=== PATIENT | female | born 1940 | race Caucasian/White ===

== ENCOUNTER → 2019-01-28 12:12 | Outpatient (CLI) | payer MEDICARE, BC, SELFPAY ==
--- NOTE | 2019-01-28 | DI.MG.S_ITS ---
BILATERAL DIGITAL DIAGNOSTIC MAMMOGRAM 3D/2D: 01/28/2019 CLINICAL: Right breast lump. Comparison is made [facility]. There are scattered fibroglandular elements in both breasts. There is a new 2.1 cm irregular equal density mass with an obscured margin in the right breast at 11 o'clock middle depth. This is seen in additional views. This correlates as palpated and with skin marker. There is axillary adenopathy associated with the mass. There also is a new 0.6 cm oval focal asymmetry in the right axillary tail. Additionally, there is a new 1.1 cm irregular equal density asymmetry in the right axillary tail. No other significant masses, calcifications, or other findings are seen in either breast. IMPRESSION: INCOMPLETE: NEEDS ADDITIONAL IMAGING EVALUATION The new 2.1 cm irregular equal density mass in the right breast at 11 o'clock middle depth is indeterminate. An ultrasound is recommended. The new 0.6 cm oval focal asymmetry in the right axillary tail is indeterminate. An ultrasound is recommended. The new 1.1 cm irregular equal density asymmetry in the right axillary tail is indeterminate. An ultrasound is recommended. Ultrasound evaluation is scheduled to immediately follow this study. This exam was interpreted at Station ID: [id number]. NOTE: For mammograms, a report in lay terms will be sent to the patient. Approximately 15% of breast malignancies will not be visualized mammographically. In the management of a palpable breast mass, a negative mammogram must not discourage biopsy of a clinically suspicious lesion. Electronically Signed By: Tate Musa M.D. aty/:01/28/2019 14:08:02 ACR BI-RADS Category 0: Incomplete [id number]
--- NOTE | 2019-01-28 | DI.US.S_ITS ---
ULTRASOUND OF RIGHT BREAST: 01/28/2019 CLINICAL: Palpable right breast lump. Comparison is made to exams dated: 01/28/2019 mammogram and 04/16/2006 mammogram - [facility]. Color flow and real-time ultrasound of the right breast were performed. Mehta scale images of the real-time examination were reviewed. There is 2.2 cm x 2 cm x 2.3 cm wider than tall irregular mass in the right breast at 11 o'clock middle depth 5 cm from the nipple. This irregular mass is hypoechoic with posterior acoustic shadowing. Color flow imaging demonstrates that there is an adjacent vascularity. This mass correlates with palpable area of concern. There was a second mass in very close vicinity to this index mass seen on today's comparison mammogram which appears to be a more focal component off the margin of this mass. There also is 0.6 cm x 0.7 cm x 0.6 cm irregular mass in the right breast at 11 o'clock posterior depth noted in close vicinity to the index mass which is likely a satellite lesion. Color flow imaging demonstrates that there is an adjacent vascularity. Additionally, there is an abnormal lymph node with eccentric cortical thickening in the right axilla. IMPRESSION: HIGHLY SUGGESTIVE OF MALIGNANCY The 2.2 cm x 2 cm x 2.3 cm wider than tall irregular mass in the right breast at 11 o'clock middle depth is highly suggestive of malignancy. An ultrasound guided biopsy is recommended. The lymph node with eccentric cortical thickening in the right axillary tail is suspicious of malignancy. An ultrasound guided biopsy is recommended. The 0.6 cm x 0.7 cm x 0.6 cm irregular mass in the right breast at 11 o'clock posterior depth is in close proximity to the index mass and is favored to represent a satellite lesion. This is suspicious of malignancy. A possible core biopsy is recommended pending results of biopsy of the index mass and axillary lymph node. This exam was interpreted at Station ID: [id number]. SUMMARY: Findings and recommendations were discussed with the patient during today's visit. Electronically Signed By: Tate Musa M.D. aty/:01/28/2019 16:02:22 letter sent: Biopsy Required Ultrasound BI-RADS: 5 Highly suggestive of malignancy
== END ==
PROVIDERS: Visit Provider Family Medicine
DX: R92.8 Other abnormal and inconclusive findings on diagnostic imaging of breast (principal); N63.11 Unspecified lump in the right breast, upper outer quadrant; R59.0 Localized enlarged lymph nodes
CPT/HCPCS: 76642; 77066; G0279

== ENCOUNTER → 2019-02-23 12:32 | Outpatient (CLI) | payer MEDICARE, BC, SELFPAY ==
--- NOTE | 2019-02-23 | DI.MG.S_ITS ---
UNILATERAL RIGHT DIGITAL DIAGNOSTIC MAMMOGRAM POST-NEEDLE BIOPSY: 02/23/2019 CLINICAL: Post clip placement. Right breast mass. Comparison is made to exams dated: 01/28/2019 mammogram and 04/16/2006 mammogram - [facility]. There are scattered fibroglandular elements in right breast. There is a marker clip in the appropriate position in the right axilla. This marker clip placement is at the biopsy site. There also is a marker clip in the appropriate position in the right breast at 10 o'clock This marker clip placement is at the biopsy site. IMPRESSION: POST PROCEDURE MAMMOGRAM FOR MARKER PLACEMENT There was a successful marker clip placement in the right axilla. There was a successful marker clip placement in the right breast at 10 o'clock This exam was interpreted at Station ID: [id number]. NOTE: For mammograms, a report in lay terms will be sent to the patient. Approximately 15% of breast malignancies will not be visualized mammographically. In the management of a palpable breast mass, a negative mammogram must not discourage biopsy of a clinically suspicious lesion. Electronically Signed By: Morales garcia/:02/23/2019 15:05:39 ACR BI-RADS Category Post-procedure mammogram for marker placement
--- NOTE | 2019-02-23 | DI.US.S_ITS ---
ULTRASOUND GUIDED BIOPSY RIGHT BREAST USING VACUUM DEVICE WITH MARKING DEVICE INSERTED: 02/23/2019 CLINICAL: Right breast mass. PATIENT CONSENT: Risks (minor bleeding, infection, vasovagal reaction and repeat procedure), benefits and alternatives were explained to the patient and written informed consent was obtained. Correlation is made to exams dated: 01/28/2019 ultrasound, 01/28/2019 mammogram, and 04/16/2006 mammogram - [facility]. An ultrasound guided biopsy using real-time ultrasound was performed for the irregular shaped mass located in the right breast at 10 o'clock middle depth. The skin was prepped in the usual manner. Local anesthetic was administered to the access site. A small incision was made in the breast. The abnormality was approached from the lateral aspect. A biopsy needle was placed adjacent to the abnormality under ultrasound guidance. Once the needle was documented to be in the correct location, six specimens were obtained using the Mammotome biopsy system. A clip was inserted into the biopsy cavity. The specimens were sent to the laboratory for pathological analysis. IMPRESSION: ULTRASOUND GUIDED BIOPSY MALIGNANT Ultrasound guided biopsy of the mass in the right breast at 10 o'clock middle depth was successful. Pathology indicates malignant invasive ductal carcinoma (ID). Pathology results are concordant with imaging findings. Of note, a smaller suspicious mass was noted less than 1.0 cm from this biopsied mass, slightly more posteriorly at the 11:00 o'clock position and is consistent with a satellite lesion. A surgical/oncologic consultation is recommended. This exam was interpreted at Station ID: [id number]. Morales garcia,aty/:03/03/2019 17:53:43
--- NOTE | 2019-02-23 | PATH_ITS ---
[facility] Accession Number: [id number] . 01 Material submitted: . PART A: breast - RIGHT BREAST MASS PART B: lymph node - RIGHT AXILLARY LYMPH NODES . 01 Clinical history: . MASS 10:00 6CM FN . 01 Diagnosis: A. Right Breast Mass, Image-Guided Core Biopsies: Invasive mammary adenocarcinoma, moderately differentiated. Histologic type: Ductal. Histologic grade: 2/3 (tubule formation score: 2/3, nuclear pleomorphism score: 2/3, mitotic score: 2/3). Combined total Winsome histologic score: 6/9, moderately differentiated. Largest size of invasive carcinoma (as measured on a single core): 8 mm. Ductal carcinoma in situ: Not definitely seen. Lymphovascular invasion: Not identified. Rare calcifications are present associated with the invasive carcinoma. . . B. 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 Largest focus of carcinoma: 4 mm. MRV/02/25/2019 . 01 Comment: Prognostic and predictive markers will be added on part A and results will follow in an addendum report. . Results have been reported to Dr. Alban Santana's RN, on 02/25/2019, at 11:12 am. . As part of ongoing software quality automation engineer, this case is also reviewed by Dr. Amrida Rueda, who agrees with the interpretation. . 01 Electronically signed: . Romario Becerra MD, Pathologist NPI- [id number] . 01 Gross description: . Received two formalin-filled containers, both labeled with the patient's name: . A. In a container labeled #1 BRST., the specimen is received with a plastic filter in container, sample loose in container and consists of multiple yellow-medrano portions of tissue which range in size from 0.3 cm to 1.0 cm in greatest dimension and a small amount of blood. The specimen is entirely submitted in cassette A. B. In a container labeled axilla #2, are three 0.1 cm in diameter, cylindrical-shaped portions of tissue that range in length from 0.4 cm to 1.0 cm. The specimen is entirely submitted in cassette B. . Collection date: 02/23/2019. Collection time per container: Part A - 1:45, Part B - 2:05. Total fixation time: 12 hours, up to 24. ([id number]) /FRR . 01 Pathologist provided ICD-10: C50.811 . 01 CPT . 718330, 378757, 538937, 897379, [id number], [id number] Performed at: [address] [id number] MD Bebeto Maxwell MD Phone: [phone]
--- NOTE | 2019-02-23 | DI.US.S_ITS ---
ULTRASOUND GUIDED BIOPSY RIGHT BREAST WITH MARKING DEVICE INSERTED: 02/23/2019 CLINICAL: Right axillary node biopsy. PATIENT CONSENT: Risks (minor bleeding, infection, vasovagal reaction and repeat procedure), benefits and alternatives were explained to the patient and written informed consent was obtained. Correlation is made to exams dated: 01/28/2019 ultrasound, 01/28/2019 mammogram, and 04/16/2006 mammogram - [facility]. An ultrasound guided biopsy using real-time ultrasound was performed for the lobulated lymph node located in the right axilla. The skin was prepped in the usual manner. Local anesthetic was administered to the access site. A small incision was made in the breast. A biopsy needle was placed adjacent to the abnormality under ultrasound guidance. Once the needle was documented to be in the correct location, four specimens were obtained using a BARD biopsy device. A clip was inserted into the biopsy cavity. The specimens were sent to the laboratory for pathological analysis. IMPRESSION: ULTRASOUND GUIDED BIOPSY MALIGNANT Ultrasound guided biopsy of the lymph node in the right axilla was successful. 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 Pathology results are concordant with imaging findings. A surgical/oncologic consultation is recommended. This exam was interpreted at Station ID: [id number]. Morales garcia,aty/:03/03/2019 17:50:25
== END ==
PROVIDERS: PCP Family Medicine; Visit Provider Family Medicine
DX: C50.411 Malignant neoplasm of upper-outer quadrant of right female breast (principal); C77.3 Secondary and unspecified malignant neoplasm of axilla and upper limb lymph nodes; Z17.0 Estrogen receptor positive status [ER+]
CPT/HCPCS: 19083; 38505; 76942; 77065; 85060; 88305; 88342

== ENCOUNTER → 2019-03-24 11:36 | Outpatient (CLI) | payer MEDICARE, BC, SELFPAY ==
[2019-03-24 12:18] LABS: Add Manual Diff / Slide Review NO; Basophils Absolute Auto 100 /uL (0-100); Basophils Percent Auto 1.2 % (0-2); Eosinophils Absolute Auto 100 /uL (0-450); Eosinophils Percent Auto 2.8 % (2-4); Hematocrit 45.3 % (36-46); Hemoglobin 14.7 g/dL (12.0-16.0); Lymphocytes Absolute Auto 1300 /uL (1100-4500); Lymphocytes Percent Auto 28.7 % (25-40); Mean Corpuscular HGB Conc 32.5 % (30-36); Mean Corpuscular Hemoglobin 30.9 PG (26-34); Mean Corpuscular Volume 94.9 fL (80-100); Monocytes Absolute Auto 400 /uL (0-900); Monocytes Percent Auto 8.5 % (3-14); Neutrophils Absolute Auto 2700 /uL (1500-7000); Neutrophils Percent Auto 58.8 % (50-75); Platelet Count 232 X10^3/uL (150-400); Red Blood Cell Count 4.77 X10^6/uL (4.0-5.2); Red Cell Distribution Width 14.3 % (11.6-14.8); White Blood Cell Count 4.6 X10^3/uL (4.5-11.0)
[2019-03-24 12:44] LABS: Alanine Aminotransferase 50 IU/L (9-52); Albumin 4.6 g/dL (3.5-5.0); Albumin Globulin Ratio 1.5 (1.0-2.8); Alkaline Phosphatase 96 U/L (38-126); Aspartate Aminotransferase 34 IU/L (14-36); BUN Creatinine Ratio 27.3 (6-22); Bilirubin Total 0.8 mg/dL (0.2-1.3); Blood Urea Nitrogen 30 mg/dL (7-17); Calcium 10.3 mg/dL (8.4-10.2); Carbon Dioxide 29 mmol/L (22-32); Chloride 102 mmol/L (98-107); Estimated Glomerular Filt Rate 47.9 mL/min (>60); Glucose 95 mg/dL (80-110); HEMOLYSIS < 15 (0-50); Lactate Dehydrogenase 463 U/L (313-618); Potassium 4.2 mmol/L (3.4-5.1); Sodium 141 mmol/L (137-145); Total Protein 7.6 g/dL (6.3-8.2)
== END ==
PROVIDERS: PCP Family Medicine; Visit Provider Surgery
DX: C50.911 Malignant neoplasm of unspecified site of right female breast (principal)
CPT/HCPCS: 36415; 80053; 83615; 85025

== ENCOUNTER → 2019-05-14 13:58 | Outpatient (CLI) | payer MEDICARE, BC, SELFPAY ==
--- NOTE | 2019-05-14 14:01 | DI.ECHO.S_ITS ---
[facility]---------+ [facility] +---------+ : : [address] [place] : : : : [id number] : : : : Phone: [phone]---------+ Echocardiogram Report + + :Name: LESLIE FORRESTER Study Date: 05/14/2019 Height: 60 in : :[facility] Exam Location: [facility] Weight: 150 lb : : Gender: Female BSA: 1.7 m2 : :: 1940 Age: 79 yrs BP: 170/100 mmHg: :Reason For Study: Pre Chemo (ICD Code V67.2) : : Performed By: Sirena Page : :Referring: LORENZA NICK : + + Interpretation Summary Mild concentric left ventricular hypertrophy with ejection fraction 60-65%. Grade I diastolic dysfunction. Moderately dilated left atrium. Mild mitral annular calcification. No valvular regurgitation. Procedure: A two-dimensional transthoracic echocardiogram with color flow and Doppler was performed. The study quality was technically adequate. There is no prior echocardiogram noted for this patient. The patient was in normal sinus rhythm during the exam. The patient had frequent PVCs during the exam. Left Ventricle: The left ventricle is normal in size. There is mild concentric left ventricular hypertrophy. The ejection fraction is estimated to be 60-65%. There are no focal wall motion abnormalities. Diastolic parameters suggest a relaxation abnormality of the left ventricle, consistent with probable normal filling pressures. Right Ventricle: The right ventricle is normal in size and function. Atria: The left atrium is moderately dilated. Right atrial size is normal. There is no Doppler evidence for an interatrial shunt. Mitral Valve: The mitral valve is normal in structure and function. There is mild mitral annular calcification. There is trace mitral regurgitation. Aortic Valve: The aortic valve is trileaflet. The aortic valve opens well. No aortic regurgitation is present. Tricuspid Valve: The tricuspid valve is normal in structure and function. There is a trace or physiologic amount of tricuspid regurgitation. Pulmonary artery pressures cannot be estimated because of the lack of a measurable TR jet velocity. Pulmonic Valve: The pulmonic valve is not well visualized. There is a trace or physiologic amount of pulmonic regurgitation. Great Vessels: The aortic root is normal size. The ascending aorta is normal in size. The pulmonary is not well visualized. The IVC is of normal diameter and collapses greater than 50% with a sniff. This suggests a low right atrial pressure of 3 mm Hg. Pericardium/ Pleura There is no pericardial effusion. There is no pleural effusion. MMode/2D Measurements & Calculations LVIDd: 4.6 cm Ao root diam: 2.9 cm LVIDs: 2.7 cm asc Aorta Diam: 2.9 cm FS: 41.1 % EPSS: 0.53 cm IVSd: 1.0 cm LVPWd: 1.2 cm LV armstrong. diameter/BSA (cm/m^2): 2.8 LV sys. diameter/BSA (cm/m^2): 1.6 LA A2 area: 21.2 cm2 RA long axis: 4.6 cm LA A4 area: 23.1 cm2 RA area: 13.4 cm2 LA length (vol): 5.7 cm RA vol: 33.4 ml LA vol: 72.9 ml RA : 20.2 ml/m2 LA vol index: 44.2 ml/m2 IVC diam: 1.6 cm RVD1 (basal): 3.5 cm RVD2 (mid): 3.0 cm TAPSE: 1.6 cm Doppler Measurements & Calculations Ao V2 max: 110.0 cm/sec LVOT Max John: 88.5 cm/sec Ao V2 mean: 74.2 cm/sec LV V1 max P.1 mmHg Ao max P.8 mmHg LV V1 VTI: 19.1 cm Ao mean P.5 mmHg sev ratio: 0.84 Ao V2 VTI: 22.6 cm MV E max john: 84.9 cm/sec PA V2 max: 67.1 cm/sec MV A max john: 94.7 cm/sec PA V2 mean: 49.9 cm/sec MV E/A: 0.90 PA mean P.1 mmHg Med Peak E' John: 3.7 cm/sec PA Accel Time: 0.12 sec E/E' med: 22.8 Lat Peak E' John: 7.0 cm/sec E/E' lat: 12.1 E/e' average: 17.5 MV P1/2t: 55.8 msec MV P1/2t max john: 84.9 cm/sec MVA(P1/2t): 3.9 cm2 Electronically signed by: Stephy Velez on Reading Physician:05/14/2019 05:23 PM
--- NOTE | 2019-05-14 14:01 | DI.CT.S_ITS ---
PROCEDURE: CT CHEST ABD PEL W CON INDICATIONS: breast cancer TECHNIQUE: After the administration of oral and intravenous contrast, 5 mm thick sections acquired from the lung apices to the symphysis. 5 mm coronal and sagittal reformats were performed, with additional 7 mm coronal MIP reformats through the lungs. For radiation dose reduction, the following was used: automated exposure control, adjustment of mA and/or kV according to patient size. COMPARISON: None. FINDINGS: Image quality: Excellent. CHEST: Lungs and pleura: No acute consolidation. Scattered scarring/atelectasis and calcified granulomas in left lung base. There is lingular pleural nodularity, some of which demonstrates calcification raising possibility of calcified pleural plaque although indeterminate. No pleural effusions or pneumothorax. Central and peripheral airways appear patent and normal in caliber. Mediastinum: Heart size is normal. No pericardial effusion. No mediastinal or hilar adenopathy by size criteria. Thoracic aorta and central pulmonary arteries are normal in size. Esophagus is normal in caliber. No hiatal hernia. Chest wall: Right breast mass. Surgical/biopsy clips are noted. No axillary or supraclavicular adenopathy by size criteria. Thyroid gland heterogeneous although this could be better assessed with ultrasound. ABDOMEN: Solid organs: Diffuse fatty infiltration. Possible focal fatty infiltration in the gallbladder fossa on image 53 series 2. Gallbladder grossly unremarkable. Biliary system is non dilated. Pancreas enhances normally. Spleen is normal in size and enhancement. No adrenal nodules. Kidneys demonstrate normal size and enhancement, without hydronephrosis. Numerous bilateral renal cysts although some of these are technically too small to characterize accurately. There is mild renal cortical atrophy/thinning. Peritoneum and bowel: Bowel loops demonstrate normal wall thickness and caliber. No free fluid or air. Nodes and vessels: No retroperitoneal or mesenteric adenopathy by size criteria. Aorta and inferior vena cava are normal in size. Miscellaneous: No ventral hernias. PELVIS: Genitourinary: Bladder grossly unremarkable. Large left adnexal cyst measuring 11.0 x 8.3 cm cross-sectional measurement on image 97 series 2. Miscellaneous: No inguinal hernias or adenopathy. Bones: No suspicious bony lesions. No vertebral body compression fractures. Diffuse osteopenia and left hip arthroplasty. IMPRESSION: Right breast mass, with associated surgical/biopsy clips. 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 Consider biochemical correlation with CA-125. Recommend gynecological consultation and potentially laparoscopic evaluation as clinically warranted. Lingular pleural nodularity, which could represent asbestos related pleural plaques although recommend close attention to this area to exclude early pulmonary metastatic disease. Diffusely heterogeneous thyroid. Recommend dedicated thyroid ultrasound. Ill-defined possible focal fatty infiltration in the region of the gallbladder fossa although recommend attention to this area to document stability given the absence of prior studies. Dictated by: Morales Cavazos M.D. on 05/14/2019 at 16:44 Approved by: Morales Cavazos M.D. on 05/14/2019 at 16:53
[2019-05-14 15:18] LABS: Blood Urea Nitrogen 21 mg/dL (7-17); Estimated Glomerular Filt Rate 53.5 mL/min (>60)
== END ==
PROVIDERS: Family Provider Family Medicine; PCP Family Medicine; Visit Provider Internal Medicine Hematology & Oncology
DX: Z01.818 Encounter for other preprocedural examination (principal); C50.411 Malignant neoplasm of upper-outer quadrant of right female breast; C77.3 Secondary and unspecified malignant neoplasm of axilla and upper limb lymph nodes; N28.1 Cyst of kidney, acquired; R91.8 Other nonspecific abnormal finding of lung field; N94.9 Unspecified condition associated with female genital organs and menstrual cycle; Z17.0 Estrogen receptor positive status [ER+]
CPT/HCPCS: 36415; 71260; 74177; 82565; 84520; 93306; Q9967

== ENCOUNTER 2019-06-08 07:23 | Observation (INO) | payer MEDICARE, BC, SELFPAY ==
[2019-06-01 10:15] VITALS: BMI 29.9
[2019-06-08] VITALS (17 sets, daily range): BP systolic 73–141; BP diastolic 24–78; PULSE 60–91; RESP 12–20; TEMP 36.1–37.4; O2SAT 92–99; BMI 28.4
--- NOTE | 2019-06-08 | DI.MG.S_ITS ---
SPECIMEN: 06/08/2019 CLINICAL: Right breast specimen. Correlation is made to exams dated: 06/08/2019 localization and 06/08/2019 [facility]. The specimen received after lumpectomy contains the mass, the prior biopsy localization clip, and the two localization wires. IMPRESSION: SPECIMEN Successful lumpectomy, with specimen containing the mass, localization wires, and the prior biopsy clip. This exam was interpreted at Station ID: [id number]. Doc Shine M.D. sdh/:06/09/2019 09:55:57
--- NOTE | 2019-06-08 | DI.MG.S_ITS ---
UNILATERAL RIGHT DIGITAL DIAGNOSTIC MAMMOGRAM: 06/08/2019 CLINICAL: Wire localization images. Comparison is made to exams dated: 02/23/2019 mammogram and 01/28/2019 mammogram - [facility]. There are scattered fibroglandular elements in right breast. The post localization mammogram shows the two localization wires bracketing the right upper outer quadrant mass of concern. IMPRESSION: KNOWN BIOPSY PROVEN MALIGNANCY Appropriate positioning of two localization wires both medial and lateral to the right UOQ mass of current clinical concern, biopsy positive. This exam was interpreted at Station ID: [id number]. NOTE: For mammograms, a report in lay terms will be sent to the patient. Approximately 15% of breast malignancies will not be visualized mammographically. In the management of a palpable breast mass, a negative mammogram must not discourage biopsy of a clinically suspicious lesion. Electronically Signed By: Doc Shine M.D. sdh/:06/09/2019 09:59:46 ACR BI-RADS Category 6: Known biopsy proven malignancy [id number]
--- NOTE | 2019-06-08 | DI.RAD.S_ITS ---
PROCEDURE: XR CHEST 1V INDICATIONS: PORT A CATH PLACEMENT TECHNIQUE: One view of the chest was acquired. COMPARISON: None. FINDINGS: Surgical changes and devices: Port-A-Cath from left subclavian approach extends in normal position, in the distal SVC.. Lungs and pleura: Lungs are clear. No pleural effusions or pneumothorax. Mediastinum: Mediastinal contours appear normal. Heart size is normal. Bones and chest wall: No suspicious bony lesions. Overlying soft tissues appear unremarkable. IMPRESSION: Normal Port-A-Cath positioning without pneumothorax. Dictated by: Doc Shine M.D. on 06/08/2019 at 13:49 Approved by: Doc Shine M.D. on 06/08/2019 at 13:49
--- NOTE | 2019-06-08 | PATH_ITS ---
[facility] Accession Number: [id number] . 01 Material submitted: . PART A: breast - RIGHT BREAST MASS PART B: breast - RIGHT BREAST MASS POSTERIOR MARGIN PART C: breast - RIGHT BREAST MASS ANTERIOR MARGIN PART D: breast - RIGHT BREAST MASS MEDIAL MARGIN PART E: breast - RIGHT BREAST MASS LATERAL MARGIN PART F: axillary tail of breast - RIGHT AXILLARY TAIL TISSUE . 01 Clinical history: . MALIGNANT NEOPLASM OF UNSPECIFIED SITE . 01 Diagnosis: A. Right Breast Mass, Excision: Invasive (ductal) carcinoma, grade 2 of 3 ([place] combined histologic grade, total score 6/9), with the following features: - Tumor size (invasive component): approximately 3.5 cm, by microscopic measurement, with a smaller satellite lesion (0.2 cm). - Nuclear pleomorphism: High. (3/3) - Mitotic rate: Low. (1/3) - Tubular differentiation: Intermediate. (2/3) - Ductal carcinoma in situ (DCIS): Not definitely identified. - Calcifications: Present (in association with invasive carcinoma and benign breast parenchyma). - Lymphatic invasion: Focally present. - Resection margins: - Invasive carcinoma is present at the posterior margin, very close (less than 0.05 cm) from the superior margin (block A18), less than 0.1 cm from the anterior margin, 0.1 cm from the inferior margin (block A8), 0.1 cm from the medial margin (as satellite lesion, block A38), and more than 1 cm from the lateral margin; see additional margins below. - Prognostic markers performed on prior biopsy ([facility], case #: [id number], 02/23/2019), per report: - Estrogen receptor status: Positive. - Progesterone receptor status: Positive. - HER-2 by IHC: Negative. - Regional lymph node status: 6 out of 8 axillary lymph nodes, positive for carcinoma (see part F below), with extranodal extension. - Additional findings: - Skin, skeletal muscle, and nipple/areola complex: Not present for evaluation. - Radial scar, fibrocystic change including usual ductal hyperplasia, columnar cell change/hyperplasia, adenosis, and apocrine metaplasia. - Pathologic stage: at least pT2 pN2a. . B. Right Breast Mass, Posterior Margin, Excision: Fibrofatty breast parenchyma. Negative for atypia, carcinoma in situ, and invasive malignancy, including examination of margins. . C. Right Breast Mass, Anterior Margin, Excision: A small focus (0.05 cm) of invasive (lobular) carcinoma is present. Margins: invasive carcinoma is 0.3 cm from inked margins. Carcinoma in situ: Not present; focal flat epithelial atypia is present. Lymphatic invasion: Focally suspicious. Background breast: Radial scar, florid usual ductal hyperplasia, columnar cell change/hyperplasia, apocrine metaplasia, and microcysts. . D. Right Breast Mass, Medial Margin, Excision: Invasive (lobular) carcinoma, grade 2 of 3 ([place] combined histologic grade, total score 6/9), with the following features: - Tumor size (invasive component): 0.8 cm, by microscopic measurement. - Nuclear pleomorphism: Intermediate. (2/3) - Mitotic rate: Intermediate. (1/3) - Tubular differentiation: None. (3/3) - Ductal carcinoma in situ (DCIS): Present. - Nuclear grade: Low-grade. - Necrosis: Absent. - Extent: Present in one slide (block D11), measuring 0.25 cm. - Lobular carcinoma in situ (LCIS) is also present. - Calcifications: Present (in association with DCIS and benign breast parenchyma). - Lymphatic invasion: Not identified. - Resection margins: - Invasive carcinoma is 0.12 cm from the inked margins. - DCIS is less than 0.1 cm from the inked margins (0.2 cm linear span). - Prognostic markers (performed on block D13): - Estrogen receptor: Positive (>90% tumor cells positive, staining intensity: Strong). - Progesterone receptor: (40-50% tumor cells positive, staining intensity: Moderate). - HER-2: Negative for protein overexpression (0-1+). - Background breast: Radial scar, intraductal papilloma, fibrocystic change including columnar cell change/hyperplasia, usual ductal hyperplasia, apocrine metaplasia, and microcysts. . E. Right Breast Mass, Lateral Margin, Excision: Fibrofatty breast parenchyma. Negative for atypia, carcinoma in situ, and invasive malignancy, including examination of margins. . F. Right Axillary Tail Tissue, Dissection: Metastatic carcinoma in 6 out of 8 lymph nodes. Size of largest metastatic focus: 1.2 cm. Extranodal extension: present. MNT/06/14/2019 . 01 Comment: The size of the largest focus of invasive carcinoma is based on both gross and microscopic assessment, and involvement of full-thickness of at least 6 slices, each of about 0.6 cm in thickness for a total size of approximately 3.5 cm; the growth pattern of the invasive carcinoma is irregular with 'fingerlike' projections; The invasive carcinoma forms a contiguous mass (spanning across slices 3-10), and has at least 1 smaller satellite lesion within the lumpectomy specimen (measuring 0.2 cm in slice 15, which is 0.1 cm from the inferior and medial margins). Perineural invasion is present. . Dr. Ivory reviewed block A18 and agrees with the interpretation. . 01 Electronically signed: . Armida Rueda MD, Pathologist NPI- [id number] . 01 Gross description: . (A) Received: In formalin, labeled right breast mass, short stitch superior, long stitch lateral. Specimen: Right partial mastectomy. Weight: 66 grams. Measurement: Up to 4.5 cm anterior to posterior, 8.8 cm medial to lateral, and up to 3.5 cm superior to inferior. Skin ellipse: Absent. Wire: Two localization wires are present. Wire #1 enters the central lateral aspect and exits the medial posteroinferior aspect. Wire #2 enters and exits superficially the central lateral aspect. Margins: Oriented by surgeon with short superior suture, long lateral suture, and inked as follows: posterior=purple; anterior=black; superior=blue; inferior=green; medial=yellow; lateral=orange. Sliced: Lateral to medial into 15 slices. Lesions: One definitive lesion is identified along with a cluster of lesions. Lesion Description: Firm white lobulated mass. Size: 2.8 x 2.5 x 2.3 cm. Slices involved: Slice 3-9. Biopsy site: No obvious biopsy site is identified. No biopsy clip is found. Distance to margins: 0.8 cm from the anterior margin, 2.0 cm from the posterior margin, 0.5 cm from the superior margin, 0.3 cm from the inferior margin, 1.5 cm from the lateral margin, and 2.3 cm from the medial margin. Cluster Description: A cluster of firm white lobulated apparently separate masses. Size: 2.5 x 2.0 x 1.2 cm. Slices involved: 8-10 Biopsy site: No obvious biopsy site is identified. No biopsy clip is found. Distance to margins and lesions: 0.2 cm from the larger separate lesion, 2.5 cm from the anterior, less than 0.1 cm from the posterior, 0.2 cm from the superior, 1.1 cm from the inferior, 4.3 cm from the lateral margin, and 2.1 cm from the medial margin. Other: The remaining cut surfaces consist of yellow lobulated unremarkable adipose tissue. No additional discrete masses or lesions are grossly identified. Fixation time: The specimen was placed in formalin in 06/08/2019 with no time given. The approximate total fixation time is calculated to be 58 hours 30 minutes. Sections: A1: Slice 1, sales representative graphic art lateral end of specimen, perpendicular. A2-A4: Slice 2, slice adjacent to lesion 1, entirely submitted. A5: Slice 3 with mass #1, sales representative graphic art. A6: Slice 4 with lesion, sales representative graphic art. A7: Slice 5 with lesion, sales representative graphic art. A8: Slice 6 with lesion, sales representative graphic art. A9-A14: Slice 7 with lesion, tissue lateral to cluster, entirely submitted. A15-A18: Slice 8 with lesion and cluster, entirely submitted. A19-A23: Slice 9 with lesion and cluster, entirely submitted. A24-A29: Slice 10, tissue medial to lesion, cluster is present, entirely submitted. A30-A34: Slice 11, tissue medial to cluster, no obvious cluster is identified, entirely submitted. A34: Slice 12, fibrous tissue, sales representative graphic art. A35: Slice 13, fibrous tissue, sales representative graphic art. A36: Slice 14, fibrous tissue, sales representative graphic art. A37-A38: Slice 15, medial end, perpendicularly sectioned, entirely submitted. (B) Received in formalin, labeled right breast mass posterior margin, is an unoriented piece of medrano-yellow rubbery adipose tissue (4.0 x 3.0 x 0.9 cm) with a homogeneous unremarkable cut surface. No nodules, masses or lesions are grossly identified. The resection margin is inked black. Serially sectioned and entirely submitted in cassettes B1-B6 with the ends perpendicularly sectioned in B1 and B6. (C) Received in formalin, labeled right breast mass anterior margin, is an unoriented piece of medrano-yellow rubbery adipose tissue (4.7 x 3.0 x 1.8 cm) with a focally fibrous cut surface. No nodules, masses or lesions are grossly identified. The resection margin is inked black. Serially sectioned and entirely submitted in cassette C1-C12 with the ends perpendicularly sectioned in C1 and C12. (D) Received in formalin, labeled right breast mass medial margin, is an unoriented piece of medrano-yellow rubbery adipose tissue (5.5 x 3.0 x 2.2 cm) with a focally fibrous cut surface. No nodules, masses or lesions are grossly identified. The resection margin is inked black. Serially sectioned and entirely submitted in cassettes D1-D14 with the ends perpendicularly sectioned in D1-D2 and D14. (E) Received in formalin, labeled right breast mass lateral margin, is an unoriented piece of medrano-yellow rubbery adipose tissue (3.9 x 2.2 x 1.2 cm) with a homogeneous unremarkable cut surface. No nodules, masses or lesions are grossly identified. The resection margin is inked black, serially sectioned and entirely submitted in cassettes E1-E6 with the ends perpendicularly sectioned in E1 and E6. (F) Received in formalin, labeled right axillary tissue, are multiple pieces of medrano-yellow rubbery adipose tissue (7.8 x 5.8 x 2.0 cm in aggregate) containing multiple possible lymph nodes (0.2 x 0.1 x 0.1 cm-1.5 x 1.3 x 0.7 cm). Section code: (F1) multiple intact lymph nodes; (F2) two bisected lymph nodes, one is inked black; (F3-F4) one serially sectioned lymph node; (F5-F7) one serially sectioned lymph node. ([id number]) /MRV . 01 Microscopic: . Within block C6, a small focus of invasive carcinoma is evaluated with an E-Cadherin immunostain, with appropriately staining external controls. The area of interest demonstrates attenuation of E. Cadherin immunostain, and as compared to the background staining, it is best interpreted as consistent with a microscopic focus of invasive lobular carcinoma. Within block C1, a focal area suspicious for a lymphovascular invasion is evaluated with estrogen receptor, D2-40, and deeper levels, with appropriately staining external controls. While the focus of interest appears positive for ER, it is exhausted on the tissue level for D2-40, and overall is suspicious for lymphovascular space invasion. . Within block D13, the additional focus of invasive carcinoma is evaluated with E-Cadherin immunostain and demonstrates loss of E. Cadherin, in support of invasive lobular carcinoma. Lobular carcinoma in situ also shows loss of E-Cadherin; Prognostic markers are performed on block D13, and the invasive lobular carcinoma demonstrates the following immunohistochemical pattern: Estrogen receptor (SP1): Positive (>90% tumor cells staining; staining intensity: Strong). Progesterone receptor (1E2): Positive (40-50% tumor cells staining; staining intensity: Moderate). Her2 (4B5): Negative overexpression (0-1+). . Internal controls for ER and OR are positive. Cold ischemic time is <5 minutes. The scoring criteria for breast biomarkers by immunohistochemistry is based on the ASCO/CAP guidelines (Jazmin AC et al J Clin Oncol 2018: 2018 Apr 10;36(20):3018-9084 and Mildred ME et al, Arch Pathol Lab Med 2009;134(6):907-22). Deparaffinized sections of formalin fixed tissue (along with appropriate positive controls) are incubated with the above antibody(s). Using the automated [place] stainer, tissue is incubated with the designated antibody which is then localized by a non-biotin, dual polymer detection system. The external controls are reviewed for appropriate reactivity and found to be adequate. Results on the target cell population are indicated above. These tests have not been validated on decalcified tissue. This test was developed and its performance characteristics determined by [employer]. It has not been cleared or approved by the U.S. Food and Drug Administration. The FDA has determined that such clearance or approval is not necessary. This test is used for clinical purposes. It should not be regarded as investigational or for research. . 01 Pathologist provided ICD-10: C50.911 . 01 CPT . 973404, 435352, 145691, R15572, Z55222, 146897, 907967, 902089, 221960, W10785, 918740, 287833 Performed at: [address] [facility] [address], [place], [place] [id number] MD Bebeto Maxwell MD Phone: [phone]
--- NOTE | 2019-06-08 07:25 | DI.US.S_ITS ---
MAMMOGRAPHY GUIDED NEEDLE LOCALIZATION RIGHT BREAST WITH POST DIGITAL MAMMOGRAPHIC IMAGING AND RADIOGRAPHIC SPECIMEN IMAGIN06/08/2019 CLINICAL: Pre-op wire localization with ultrasound guidance. Correlation is made to exams dated: 02/23/2019 ultrasound biopsy, 02/23/2019 ultrasound biopsy, 02/23/2019 mammogram, 01/28/2019 ultrasound, 01/28/2019 mammogram, and 04/16/2006 mammogram - [facility]. A needle localization using mammography guidance was performed for the concerning circumscribed lobulated solid mass located in the right breast at 11 o'clock middle depth. This was described on the previous mammography and ultrasound reports. The skin was prepped in the usual manner. Local anesthetic was administered to the access site. The localization was approached from the lateral aspect. Two localization wires were inserted into the targeted area through an introducer device under mammography guidance. The first was placed with its tip just proximal tothe posterior boarder of the mass. The second was placed through the mass itself, and with tip terminating approximately 2.5 cm beyond the medial border of the mass. A sterile dressing was applied to the access site. Post placement digital mammographic imaging demonstrates the tips demarcate the boundaries of the targeted area. IMPRESSION: NEEDLE LOCALIZATION Needle localization for the solid mass in the right breast at 11 o'clock middle depth with placement of two needles at the lateral and beyond the medial borders of the mass was successful. The imaged specimen includes the mass, a biopsy clip, and the distal portion of the localization wires. This exam was interpreted at Station ID: [id number]. Doc Shine M.D. [facility]/:06/09/2019 09:52:18
--- NOTE | 2019-06-08 08:38 | PM.PREOP ---
Pre-operative Note Interval Note History & Physical reviewed/Exam performed by Physician: Yes Changes to H&P: No
[2019-06-08] MEDS: ONDANSETRON 4 MG/2 ML INJ IV (09:43)
[2019-06-08] MEDS: LACTATED RINGERS 1,000 ML 100 ML IV (09:43)
--- NOTE | 2019-06-08 09:46 | SUR.PREOP ---
Pt dry heaving. Dr. Mcghee notified, zofrfarida ordered. Quetabathae provided. Pt vomited small amt of green fluid, medicated with zofan.
[2019-06-08] MEDS: CLINDAMYCIN 900 MG/50 ML PIGGYBACK 50 MG IV (10:52)
--- NOTE | 2019-06-08 11:03 | SUR.OPER ---
Supine on padded OR bed, head on pillow, arm padded and tucked at side, legs uncrossed, safety belt at thigh, tape over blanket over lower legs .
[2019-06-08] MEDS: BUPIVACAINE 0.25% (PF) VIAL 30 ML INJ (11:50)
[2019-06-08] MEDS: HEPARIN 5,000 UNIT, SODIUM CHLORIDE 0.9% 50 ML IV (11:50)
--- NOTE | 2019-06-08 13:10 | PM.OP.1 ---
Operative Date/Time/Diagnoses Date of procedure: 06/08/19 Time of procedure: 13:11 Pre-op diagnosis: Right breast cancer Post-op diagnosis: same Procedure & Clinicians Procedure: Right needle guided lumpectomy Left subclavian port a cath placement R axillary lymph node dissection Same procedure as scheduled: Yes Indications: A 79-year-old female with a 2 cm biopsy-proven invasive ductal carcinoma of the right breast ER/IA positive, HER2 negative with biopsy proven positive axillary node. She presents for a needle-guided lumpectomy Port-A-Cath placement and right axillary lymph node dissection. She has 2 lesions within the right breast the dominant lesion and a <1cm satellite lesion both of which underwent needle localization today. Surgeon: Travis Mcghee Click Yes if Unassisted: Yes Anesthesia Type: General Operative Notes Findings: Palpable axillary lymph nodes, breast cancer removed in entirety with radographic confirmation of wires and clips within the specimen Specimen(s): other (R breast mass. R breast margins (anterior, posterior, medial and lateral) R axillary tissue) Estimated Blood Loss (mL): 20 Procedure in detail: The patient was brought to the operating room and placed supine on the table. Bilateral lower extremity compression devices were applied. General anesthesia was induced she was intubated with an endotracheal tube. He was then prepped and draped in usual sterile fashion. Time-out was performed into the correct patient procedure necessary equipment within the operating room. Began with a left subclavian Port-A-Cath placement. The finer needle was advanced into the left subclavian vein. The guidewire was easily passed through the the needle and its position within the SVC was confirmed with fluoroscopy. Skin incision was made over the wire and then the dilator with its sheath was passed over the wire. Again its position was confirmed with fluoroscopy. We then advanced the catheter through the sheath and it attached the port which had been previously flushed with heparinized saline. The port flushed and withdrew easily. It is a subcutaneous pocket into which the port was placed. The port was secured to the underlying fascia using a 0 Prolene suture. The wound was irrigated and checked for hemostasis and then the subcutaneous tissues were closed with 3 0 Vicryl followed by for Monocryl for the skin and Dermabond. The patient was then re-prepped and draped for the right breast cancer aspect of the case. The localizing wires her in the right lateral aspect right inferior and lateral aspect of the breast. A curvilinear skin incision was made the steps to his tissues were divided. A wire within pulled into the wound. There is a large palpable breast mass. The mass was circumferentially dissected using electrocautery and it was removed in its entirety passed off the field labeled the specimen right breast mass. I took additional margins anterior posterior medial and lateral. Next proceeded with the axillary dissection through the same incision. The pectoralis minor and the latissimus were identified. The long thoracic nerve was identified along the chest wall and protected out of harms way. The grossly positive firm lymphatic tissue between the pectoralis minor the latissimus and the axillary vein was removed with ligatuure device. Again the plan was for a limited axillary dissection based on her age risk for lymphadema and plan for post axillary and breast radiation therapy and therefore only the grossly positive lymphatic tissue was removed. The wound was checked for hemostasis. The wound was irrigated with saline. Wound was then closed with 3 0 Vicryl the skin closed with Monocryl suture followed by the application of Dermabond. The sponge instrument count at the end of the operation was correct. Patient tolerated procedure well. Complications: none Post-operative Condition: stable Disposition: observation
--- NOTE | 2019-06-08 15:29 | PC.NURSE ---
Day Shift- Report rec'd from PACU at 1357 from [facility]. Pt arrived to unit room 205 at 1412. Oriented to call light, post op routines. Port-a cath card placed into pt's belongings bag. Right arm CMS+, radial pulse palpable. Right chest incision well approximated with surgical glue. Left chest port incision well approximated with surgical glue and covered with CDI tegaderm. Bed alarm on, Calf SCD's on BLE. Fax sent to OR at [address] Mcghee for PRN anti-emetic, pain medications. And to clarify if IVF needed post op. Evening RN aware.
[2019-06-08] MEDS: ACETAMINOPHEN 325 MG TABLET 650 MG PO ×2 (17:11→21:17)
[2019-06-08] MEDS: METFORMIN HCL 500 MG TABLET PO (21:17)
[2019-06-09] VITALS: BP 118/66; PULSE 76; RESP 16; TEMP 37.2; O2SAT 94
--- NOTE | 2019-06-09 03:57 | PC.NURSE ---
Pt rested in bed overnight without apparent distress. Pt did report intermittant achy pain to front of right shoulder. This pain lasted for ~30mins and resolved without intervention. CMS positive to right arm, radial pulse palpable. Left chest port placement site with wounds edges intact with surgical glue, no drainage, tegaderm in place. Pt expecting to discharge today back to [facility].
[2019-06-09 04:45] VITALS: BP 123/61; PULSE 79; RESP 18; TEMP 36.6; O2SAT 97
[2019-06-09] MEDS: ACETAMINOPHEN 325 MG TABLET 650 MG PO (08:21)
[2019-06-09] MEDS: AMLODIPINE 5 MG TABLET 10 MG PO (08:21)
[2019-06-09] MEDS: METFORMIN HCL 500 MG TABLET PO (08:21)
[2019-06-09] MEDS: hydroCHLOROthiazide 25 MG TABLET PO (08:21)
[2019-06-09] MEDS: LOSARTAN 50 MG TABLET 100 MG PO (08:21)
[2019-06-09] MEDS: DICLOFENAC 50 MG DR TABLET PO (08:22)
[2019-06-09 08:26] VITALS: BP 139/83; PULSE 74; RESP 18; TEMP 36.4; O2SAT 95
--- NOTE | 2019-06-09 08:36 | PM.DS.1 ---
History of Present Illness History of Present Illness Date Patient Seen: 06/09/19 Time Patient Seen: 08:36 Chief complaint: [id number] RIGHT *OPB* Narrative: 79-year-old female with locally advanced right breast cancer. Biopsy-proven invasive ductal carcinoma right breast 2cm in size ER/HI positive HER2 negative with palpable and biopsy-proven positive axillary lymph node, T2N1. CT chest abdomen pelvis which shows no evidence of metastatic disease. However, imaging does show a secondary satelite lesion in the right breast not biopsied <1 cm posterior to index mass that is suspicious. Oncology plans for adjuvant radiation and chemotherpay. Discharge Providers Provider Discharge Date: 06/09/19 Primary care physician: Palomo Phoenix MD Discharge provider: Travis Mcghee MD Summary Hospital Course Discharge Diagnosis: right breast cancer Hospital Course: The patient was taken to the operating room 06/08/2019 and underwent a needle-guided lumpectomy including both masses within the right breast as well as a right limited axillary dissection and a left subclavian Port-A-Cath placement. The patient tolerated the procedure well. the radiographs were reviewed which demonstrates appropriate port placement with no evidence of pneumothorax and imaging confirming that both wires were within the excised right breast mass. Postoperatively the patient did well. Pain is well controlled she is ambulatory and tolerating a diet. She is stable for discharge home at this time. Status at Discharge Cognitive/behavioral status at discharge: oriented Functional status at discharge: independent ambulation Overall status at discharge: patient is back to baseline Time Spent with Patient Time spent: Greater than 30 minutes Exam Vital Signs (past 8 hours): - 06/09/19 04:45 06/09/19 08:26 Temperature 97.8 F 97.6 F Pulse Rate 79 74 Respiratory Rate 18 18 Blood Pressure 123/61 139/83 Pulse Oximetry 97 95 Oxygen Delivery Method Room Air Oxygen Flow Rate 0 Narrative Exam Narrative: General adult female no acute distress alert and oriented Chest nonlabored respirations. Left subclavian Port-A-Cath incision clean dry intact . Breast right lumpectomy incision clean dry intact appropriately tender to palpation Discharge Plan Discharge Plan Patient Disposition: Home Discharge Med Rec/Prescriptions Prescriptions: New oxycodone 5 mg capsule 5 mg PO Q4-6H PRN (Reason: pain) Qty: 10 RF: 0 Continued metformin 500 mg tablet 500 mg PO BID Qty: 90 RF: 0 diclofenac potassium 50 mg tablet 50 mg PO DAILY Qty: 90 RF: 0 hydrochlorothiazide 25 mg tablet 25 mg PO DAILY Qty: 90 RF: 0 losartan 100 mg tablet 100 mg PO DAILY Qty: 90 RF: 0 amlodipine 10 mg tablet 10 mg PO DAILY RF: 0 rosuvastatin 5 mg tablet 5 mg PO DAILY RF: 0 Follow up/Referrals: Travis Mcghee MD [Physician] - Discharge Orders: Discharge (Order); Ordered 06/09/19 Ordered By: Travis Mcghee Provider Discharge Instructions Activity: may shower. No driving while taking narcotics. Skin/Wound/Dressing Care Report to your healthcare provider any signs of infection, such as:: chills, fever, increased pain, unusual drainage and unusual redness Visit Report/Discharge Packet Instructions: DI for Breast Biopsy, DI for Implanted Venous Access Port, [facility]: Wound Care Stand Alone Forms: Surgery Discharge Discharge Data Primary Care Provider: Palomo Phoenix Attending Provider: Travis Mcghee
--- NOTE | 2019-06-09 09:15 | PC.NURSE ---
Addendum entered by Amber Fonseca R.N. 06/09/19 10:59: Went over dc meds and instructions with patient, questions answered. RX for pain meds given. Pt has follow up appt scheduled. Patient taken via WC by staff and friend to cafeteria. Patient having lunch downstairs before leaving [place]. Original Note: Patient alert, oriented, denies pain and nausea. R axilla and left chest surgical site WNL. Tolerated breakfast without nausea. Pt ambulating indep in room, gait is steady and denies dizziness.
--- NOTE | 2019-06-10 15:07 | CM.DPNOTE ---
Late Entry/Initial DCP Note: Spoke w/Oncology SWer morning of pt's DC, 06.09.19, Kira Olmedoce-Joseph explained that she had spoken w/pt before this procedure and planned to f/u w/her once she got home re: questions about f/u in Oncology, hooks of medications and other questions about receiving care. Kira expects no barriers to safe return home today after medically cleared. Pt did DC home as expected, w/friend to assist back to [place]. DAIN Hay
== END 2019-06-09 11:01 | disposition home or self-care (01) ==
LOC: OR 07:24 → AC 07:25
PROVIDERS: Admitting Provider Surgery; Family Provider Family Medicine; PCP Family Medicine; Visit Provider Surgery
PROC: (CPT 19301; principal; 2019-06-08 10:45)
PROC: (CPT 19301; 2019-06-08 10:45)
PROC: (CPT 19301; 2019-06-08 10:45)
DX: C50.911 Malignant neoplasm of unspecified site of right female breast; Z45.2 Encounter for adjustment and management of vascular access device; Z17.0 Estrogen receptor positive status [ER+]; E11.9 Type 2 diabetes mellitus without complications; I10 Essential (primary) hypertension; Z79.84 Long term (current) use of oral hypoglycemic drugs
CPT/HCPCS: 19301; 36561; 19285; 71045; 76000; 76098; 77065; 82962; C1788; G0378; J1644; J2405; J2704; J3010

== ENCOUNTER → 2019-10-28 12:42 | Outpatient (CLI) | payer MEDICARE, BC, SELFPAY ==
[2019-06-08 14:26] VITALS: BMI 28.4
== END ==
PROVIDERS: PCP Family Medicine; Visit Provider Internal Medicine Hematology & Oncology
DX: M81.0 Age-related osteoporosis without current pathological fracture (principal); Z78.0 Asymptomatic menopausal state; C50.911 Malignant neoplasm of unspecified site of right female breast; E07.9 Disorder of thyroid, unspecified; M06.9 Rheumatoid arthritis, unspecified
CPT/HCPCS: 77080

== ENCOUNTER → 2019-11-01 10:32 | Outpatient (CLI) | payer MEDICARE, BC, SELFPAY ==
[2019-06-08 14:26] VITALS: BMI 28.4
--- NOTE | 2019-11-01 10:35 | DI.US.S_ITS ---
PROCEDURE: US PERIPH VENOUS UP EXTREM RT INDICATIONS: RT ARM SWELLING TECHNIQUE: Real-time imaging, as well as color and pulse Doppler interrogation, was performed of the right upper extremity deep veins from the inferior neck to the antecubital fossa. COMPARISON: None. FINDINGS: The internal jugular vein, visualized portions of the subclavian vein, axillary, and brachial veins are free of intraluminal thrombus. Where physically possible, the veins are normally compressible. Color and pulse Doppler demonstrate normal intraluminal flow, with expected phasicity and pulsatility. Additional scanning of the cephalic and basilic veins of the superficial system demonstrate normal compressibility, without thrombus. IMPRESSION: No DVT found. Dictated by: Doc Shine M.D. on 11/01/2019 at 11:49 Approved by: Doc Shine M.D. on 11/01/2019 at 11:51
== END ==
PROVIDERS: PCP Family Medicine; Visit Provider Internal Medicine Hematology & Oncology
DX: C50.411 Malignant neoplasm of upper-outer quadrant of right female breast (principal); C77.3 Secondary and unspecified malignant neoplasm of axilla and upper limb lymph nodes; M79.89 Other specified soft tissue disorders; M81.0 Age-related osteoporosis without current pathological fracture; Z17.0 Estrogen receptor positive status [ER+]
CPT/HCPCS: 93971; 99215

== ENCOUNTER → 2020-08-30 09:35 | Outpatient (CLI) | payer MEDICARE, OTHER, SELFPAY ==
[2019-06-08 14:26] VITALS: BMI 28.4
--- NOTE | 2020-08-30 09:38 | DI.US.S_ITS ---
LIMITED ULTRASOUND OF RIGHT BREAST AND AXILLA: 08/30/2020 CLINICAL: Additional evaluation requested from prior study. right breast. Comparison is made to exams dated: 08/30/2020 mammogram, 06/08/2019 specimen, 06/08/2019 mammogram, 06/08/2019 localization, 02/23/2019 ultrasound biopsy, and 02/23/2019 ultrasound biopsy - [facility]. Ultrasound of the right breast 9-12 o'clock, and axilla regions was performed. No shadowing mass, fluid collection, or other suspicious finding. IMPRESSION: NEGATIVE There is no sonographic evidence of malignancy. No finding to explain nipple retraction/inversion. This exam was interpreted at Station ID: [id number]. Electronically Signed By: Josiah Bryan M.D. jr/:08/30/2020 11:45:36 letter sent: Normal Exam Ultrasound BI-RADS: 1 Negative
--- NOTE | 2020-08-30 09:38 | DI.MG.S_ITS ---
BILATERAL DIGITAL DIAGNOSTIC MAMMOGRAM 3D/2D: 08/30/2020 CLINICAL: Right nipple retraction. Comparison is made to exams dated: 06/08/2019 mammogram, 02/23/2019 mammogram, and 01/28/2019 mammogram - [facility]. There are scattered fibroglandular elements in both breasts. There is a new post-surgical scar in the right breast at 11 o'clock middle depth. There is architectural distortion associated with the post-surgical scar. No other significant masses, calcifications, or other findings are seen in either breast. IMPRESSION: INCOMPLETE: NEEDS ADDITIONAL IMAGING EVALUATION There is new post-surgical scarring in the right breast related to recent lumpectomy. Nipple inversion/retraction is present, indeterminate. No suspicious abnormality otherwise. An ultrasound is recommended and has been scheduled to immediately follow. This exam was interpreted at Station ID: [id number]. NOTE: For mammograms, a report in lay terms will be sent to the patient. Approximately 15% of breast malignancies will not be visualized mammographically. In the management of a palpable breast mass, a negative mammogram must not discourage biopsy of a clinically suspicious lesion. Electronically Signed By: Josiah Bryan M.D. jr/:08/30/2020 11:32:25 letter sent: Additional Imaging Needed ACR BI-RADS Category 0: Incomplete [id number]
== END ==
PROVIDERS: PCP Family Medicine; Referring Provider Internal Medicine Hematology & Oncology; Visit Provider Internal Medicine Hematology & Oncology
DX: R92.8 Other abnormal and inconclusive findings on diagnostic imaging of breast (principal); N64.53 Retraction of nipple; C50.911 Malignant neoplasm of unspecified site of right female breast
CPT/HCPCS: 76642; 77066; G0279

== ENCOUNTER 2020-11-28 11:06 | Observation (INO) | payer MEDICARE, OTHER, SELFPAY ==
[2019-06-08 14:26] VITALS: BMI 28.4
[2020-11-28] VITALS (24 sets, daily range): BP systolic 119–161; BP diastolic 58–98; PULSE 84–101; RESP 16–28; TEMP 36.8–37.2; O2SAT 83–99; BMI 27.3
--- NOTE | 2020-11-28 11:09 | DI.RAD.S_ITS ---
PROCEDURE: XR PELVIS 1-2V INDICATIONS: pain sp glf TECHNIQUE: Single AP view(s) of the pelvis acquired. COMPARISON: None. FINDINGS: Bones: No definite acute fractures. Postoperative changes from left total hip arthroplasty with likely reactive/mechanical changes surrounding the acetabular cup component. No evidence for hardware loosening or failure. Moderate-severe osteoarthritic changes of the right hip. Visualized portions of the pelvic ring appear intact. Degenerative changes of the lower lumbar spine. No suspicious bony lesions. Soft tissues: Visualized bowel gas pattern is normal. No suspicious soft tissue calcifications. IMPRESSION: 1. Pelvis without acute fracture. 2. Moderate-severe right hip osteoarthrosis. 3. Status post left total hip arthroplasty without evidence for hardware loosening or failure. Dictated by: Tate Musa M.D. on 11/28/2020 at 12:00 Approved by: Tate Musa M.D. on 11/28/2020 at 12:02
--- NOTE | 2020-11-28 11:09 | DI.CT.S_ITS ---
PROCEDURE: CT HEAD/BRAIN WO CON INDICATIONS: pain sp glf TECHNIQUE: Noncontrast 4.5 mm thick angled axial sections acquired from the foramen magnum to the vertex, with coronal and sagittal reformats. For radiation dose reduction, the following was used: automated exposure control, adjustment of mA and/or kV according to patient size. COMPARISON: None. FINDINGS: Image quality: Excellent. CSF spaces: Basal cisterns are patent. No extra-axial fluid collections. The ventricles are symmetric in size and shape. Brain: No intracranial bleeds or masses. There is moderate cerebral volume loss for age, with resultant ventricular and sulcal prominence. There are moderate periventricular and deep white matter chronic small vessel ischemic changes. There is intracranial internal carotid artery atherosclerosis. Skull and face: There is right periorbital soft tissue swelling. Suggestion of possible nondisplaced posterolateral right orbital wall fracture with associated layering fluid in the right maxillary sinus. This is best seen on axial image 6, series 4. Remainder of the calvarium and visualized facial bones appear intact, without suspicious lesions. Sinuses: Mucosal thickening and layering fluid within the right maxillary sinus and posterior sphenoid sinuses. Remainder of the visualized paranasal sinuses and mastoids are clear. IMPRESSION: 1. CT head without acute intracranial abnormalities. 2. Possible nondisplaced posterolateral right orbital wall fracture with right periorbital soft tissue swelling. Recommend correlation with physical examination for area of patient's pain. 3. Right maxillary and sphenoid sinus disease. 4. Age related senescent changes and sequela of chronic small vessel ischemic disease. Dictated by: Tate Musa M.D. on 11/28/2020 at 12:02 Approved by: Tate Musa M.D. on 11/28/2020 at 12:11
--- NOTE | 2020-11-28 11:09 | DI.CT.S_ITS ---
PROCEDURE: CT CERVICAL SPINE WO CON INDICATIONS: pain sp glf TECHNIQUE: Noncontrast 3 mm thick sections acquired from the skull base to the T4 level. Sagittal and coronal reformats were then constructed. For radiation dose reduction, the following was used: automated exposure control, adjustment of mA and/or kV according to patient size. COMPARISON: None. FINDINGS: Image quality: Excellent. Bones: No acute fractures or dislocations. No acute compression fractures of the vertebral bodies. Craniocervical junction is intact. C1-C2 relationship is preserved. Visualized superior ribs are intact. Severe degenerative changes of the C1-C2 articulation. Moderate-severe multilevel cervical spondylosis throughout the imaged cervical spine with severe disc space loss at C5-6 and C6-7. Degenerative endplate changes and prominent endplate osteophytes are seen throughout the cervical spine but most pronounced from C3-4 through C6-7. Moderate multilevel facet arthropathy. Straightening of cervical lordosis. Degenerative changes of the bilateral temporomandibular joints. The possible nondisplaced fracture involving the posterolateral right orbital wall is not appreciated on this study. It may have represented a prominent nutrient foramen. Soft tissues: Prevertebral soft tissues are normal in thickness. No paravertebral hematomas. No apical pneumothoraces. Layering fluid and mucosal thickening of the right maxillary sinus. Layering fluid seen in the sphenoid sinuses. Mastoid air cells appear clear. IMPRESSION: 1. Cervical spine without acute fracture or dislocation. 2. Moderate-severe multilevel cervical spondylosis and associated facet arthropathy. 3. The possible nondisplaced posterolateral right orbital wall fracture described on comparison CT is not appreciated on this exam and may have represented a nutrient foramen . 4. Right maxillary and scattered sphenoid sinus disease. 5. Mild straightening of normal cervical lordosis likely related to positioning and/or concurrent muscle spasms. Dictated by: Tate Musa M.D. on 11/28/2020 at 12:13 Approved by: Tate Musa M.D. on 11/28/2020 at 12:21
--- NOTE | 2020-11-28 11:11 | DI.CT.S_ITS ---
PROCEDURE: CT THORACIC SPINE WO CON INDICATIONS: pain sp hitting back on tub TECHNIQUE: Noncontrast 3 mm thick sections acquired through the region of interest in the thoracic spine. Sagittal and coronal reformats were then constructed. For radiation dose reduction, the following was used: automated exposure control. COMPARISON: [facility], CT, CT CHEST ABD PEL W CON, 05/14/2019, 15:29. FINDINGS: Image quality: Excellent. Bones: There is normal overall bony alignment. No acute vertebral body compression fractures. No suspicious sclerotic or lytic bony lesions. Central spinal canal is of normal overall caliber. Mild multilevel spondylitic changes. Soft tissues: No paravertebral masses or hematomas. Visualized posteromedial lungs appear clear. A few calcified pulmonary granulomas. Minimal dependent atelectasis. No hilar or mediastinal adenopathy. Stable appearance of bilateral renal cysts. Very small hiatal hernia. IMPRESSION: 1. Thoracic spine without acute fracture or malalignment. 2. Mild multilevel thoracic spondylosis. 3. Chronic findings as above. Dictated by: Tate Musa M.D. on 11/28/2020 at 12:22 Approved by: Tate Musa M.D. on 11/28/2020 at 12:33
--- NOTE | 2020-11-28 11:11 | DI.RAD.S_ITS ---
PROCEDURE: XR KNEE RT 3V INDICATIONS: pain sp glf right knee TECHNIQUE: 3 views of the knee were acquired. COMPARISON: [facility], CR, XR PELVIS 1-2V, 11/28/2020, 11:18. FINDINGS: Bones: Diffuse osteopenia. Severe tricompartmental degenerative changes of the right knee with moderate joint space loss. Marginal osteophyte formation. There is cortical irregularity and gap like lucency seen only on the sunrise view of the medial patella. There is moderate overlying soft tissue swelling and a large joint effusion. Alignment is anatomic. Soft tissues: There is a large joint effusion with likely capsular calcifications. No suspicious soft tissue calcifications. IMPRESSION: 1. Cortical irregularity in cap like lucency involving the medial wall of the patella seen only on the sunrise view which in combination with history of fall, large suprapatellar joint effusion, and soft tissue swelling is suspicious for possible patellar fracture. Recommend correlation with examination for area of tenderness. 2. Severe tricompartmental osteoarthritic changes of the right knee. Dictated by: Tate Musa M.D. on 11/28/2020 at 11:55 Approved by: Tate Musa M.D. on 11/28/2020 at 11:59
[2020-11-28] MEDS: SODIUM CHLORIDE 0.9% 1,000 ML 1000 ML IV (11:21)
--- NOTE | 2020-11-28 11:22 | ED.FALL ---
HPI - Fall <Laura Leon AGING BOX HAND-BC - Last Filed: 11/28/20 16:30> General Chief Complaint: Fall Stated Complaint: Fall Time Seen by Provider: 11/28/20 11:08 Source: patient and EMS Mode of arrival: EMS History of Present Illness HPI Narrative: The patient is an 80-year-old female nonsmoker with history of breast cancer and osteoporosis who presents with a chief complaint of a ground level fall last night. She lives out in [place] and has been having significant right knee pain for the past few days. She was attempting to ambulate last night in the bathroom when she tripped and fell. She is adamant that this is a mechanical fall. However she was unable to get up a due to her level of pain so she spent all night on the ground. She was found by neighbor this morning. Her primary complaints include mid back pain, right knee pain, bilateral hip pain and neck pain. She denies any loss of consciousness. She states she has not had anything to eat or drink since yesterday morning. She states she was not walking around due to her knee pain, which is incapacitated her. She presents by [facility], fixed wing to ambulance transfer with no C-collar, on a inflatable spinal immobilizer. She was given 50 mcg of fentanyl en route. Patient activated as a modified trauma upon arrival as she is over 65 with a ground level fall and suspected injury. Related Data Home Medications Medication Instructions Recorded Confirmed metformin 1,000 mg PO DAILY 10/07/19 09/04/20 Previous Rx's Medication Instructions Recorded diclofenac potassium 50 mg tablet 50 mg PO DAILY #90 tab 03/24/19 hydrochlorothiazide 25 mg tablet 25 mg PO DAILY #90 tab 03/24/19 losartan 100 mg tablet 100 mg PO DAILY #90 tab 03/24/19 letrozole 2.5 mg PO DAILY #30 tab 04/06/20 lidocaine 1 patch TOPICAL DAILY PRN #15 ea 11/28/20 Allergies Allergy/AdvReac Type Severity Reaction Status Date / Time diphenhydramine Allergy Intermediate Numbness Verified 11/28/20 11:13 [From Motrin PM] ibuprofen [From Motrin PM] Allergy Intermediate Facial Verified 11/28/20 11:13 Numbness cephalexin Allergy Unknown unknown Verified 11/28/20 11:13 codeine Allergy Unknown didn't Verified 11/28/20 11:13 feel good indomethacin [From Indocin] Allergy Unknown unknown Verified 11/28/20 11:13 naproxen Allergy Unknown agrivated Verified 11/28/20 11:13 arthritis simvastatin Allergy Unknown unknown Verified 11/28/20 11:13 latex AdvReac Intermediate Rash Verified 11/28/20 11:13 Review of Systems <RYNE Childs - Last Filed: 11/28/20 16:30> Review of Systems Narrative: GENERAL: See HPI HEENT: Denies sinus pain, ear pain, sore throat, difficulty swallowing, dizziness. RESPIRATORY: Denies dyspnea, cough, wheezing, hemoptysis, sputum. CARDIOVASCULAR: Denies chest pain, palpitations, orthopnea, edema, GASTROINTESTINAL: Denies nausea, vomiting, abdominal pain, diarrhea, constipation, melena. : Denies dysuria, frequency, incontinence, hematuria, urinary retention. MUSCULOSKELETAL: See HPI SKIN: Denies rash, skin lesions, or other NEUROLOGIC: Denies weakness, headache, numbness, change in speech, confusion, seizures, incoordination. PSYCHIATRIC: No concerning psychosocial issues. 12 point review of systems is negative except for those stated above Patient History <RYNE Childs - Last Filed: 11/28/20 16:30> Medical History (Updated 11/28/20 @ 19:29 by Jihan Young DO) Arthritis Diabetes HLD (hyperlipidemia) Hypertension Rheumatic fever Surgical History H/O hernia repair H/O left knee surgery History of biopsy (02/23/19) History of left hip replacement Family History Mother Heart disease Social History household members: none Smoking Status: Never smoker alcohol intake: never substance use type: does not use Smoking Status: Never smoker Substance Use Type: does not use Exam <RYNE Childs - Last Filed: 11/28/20 16:30> Narrative Exam Narrative: GENERAL: This is a well-nourished, well-developed patient, weighing on stretcher HEAD: Atraumatic. Normocephalic. No temporal or scalp tenderness. No pain to palpation of facial bones. No pain to palpation of orbits. EYES: Pupils equal round and reactive. Extraocular motions intact. No scleral icterus. No injection or drainage. ENT: Nose without bleeding, purulent drainage or septal hematoma. Throat without erythema, tonsillar hypertrophy or exudate. Uvula midline. Airway patent. NECK: Trachea midline. No JVD or lymphadenopathy. Supple, nontender, no meningeal signs. CARDIOVASCULAR: Regular rate and rhythm RESPIRATORY: Clear to auscultation. Breath sounds equal bilaterally. No wheezes, rales, or rhonchi. No cough. No increased respiratory effort. No accessory muscle use. Speaking full sentences. GASTROINTESTINAL: Abdomen soft, non-tender, nondistended. No hepato-splenomegaly, or palpable masses. No guarding. EXTREMITIES: Significant pain to palpation noted range of motion, significant swelling noted right knee, no overlying erythema. Positive pedal pulses right foot. Decreased range of motion all ibrahim right knee. Diffuse pain to palpation bilateral hips. No pain to palpation bilateral femurs, using upper extremities equally. BACK: Pain to palpation C-spine, pain to palpation T-spine, no pain to palpation L-spine. Nontender without deformity or crepitance. No flank tenderness. Patient log rolled with nursing staff in C-spine precautions maintained initiated upon arrival to the emergency department. NEURO: AOx3. SKIN: No rash or erythema on visible skin. No overlying erythema or abrasion noted right knee. No Gacria signs no periorbital ecchymosis. Initial Vital Signs Initial Vital Signs: Vital Signs Pulse Rate 99 H 11/28/20 11:09 Pulse Oximetry 98 11/28/20 11:09 <Jihan Young DO - Last Filed: 11/28/20 19:30> Initial Vital Signs Initial Vital Signs: Vital Signs Pulse Rate 99 H 11/28/20 11:09 Pulse Oximetry 98 11/28/20 11:09 Procedures <RYNE Childs - Last Filed: 11/28/20 16:30> Orthopedic Splinting/Casting Injury #1: Side: right Lower Extremity Immobilizer: knee immobilizer Other Orthopedic Equipment: walker Post splinting neuro exam: intact Post splinting vascular exam: intact Placed by: Nursing Scores <RYNE Childs - Last Filed: 11/28/20 16:30> GCS [place] coma scale eye opening: Spontaneous Judith coma scale verbal response: Orientated [place] coma scale motor response: Obey commands Judith coma scale total score: 15 Nexus Score for C-Spine Focal Neurologic deficit present: No Midline spinal tenderness present: Yes Altered level of conciousness present: No Intoxication present: No Distracting Injury Present: Yes Nexus Criteria for C-spine: 2 Course <Laura LeonNATALIIAP-BC - Last Filed: 11/28/20 16:30> Orders Ordered: ED Orders 11/28/20 11:09 CT cervical spine wo con Stat CT head/brain wo con Stat XR pelvis 1-2V Stat 11/28/20 11:11 CT thoracic spine wo con Stat XR knee RT 3V Stat 11/28/20 11:47 Complete Blood Count AUTO DIFF Stat Comprehensive Metabolic Panel Stat Creatine Kinase Stat Lactate (Lactic Acid) Stat Lipase Stat Partial Thromboplastin Time Stat Prothrombin Time INR Stat Type and Screen Stat 11/28/20 15:09 Consult to BUSINESS PROPOSAL REP - Slurry Worker Stat 11/28/20 17:39 CT LE RT wo con Stat 11/28/20 18:38 Education, smoking cessation ONGOING Acetaminophen (Acetaminophen 325 Mg Tablet) 650 mg PO Q6HR PRN PRN Reason: Fever/Mild Pain (1-3) Hydrocodone Bitart/Acetaminophen (Hydrocodone/Acet 5/325 Tablet) 1 tab PO Q4HR PRN PRN Reason: Pain, Moderate (4-6) Diclofenac Sodium (Diclofenac [address] Tablet) 50 mg PO DAILY [facility] Enoxaparin Sodium (Enoxaparin 40 Mg/0.4 Ml Syringe) 40 mg SUBCUT DAILY [facility] Heparin Sodium (Porcine) (Heparin 500 Unit/5 Ml Port Flush) 500 unit IV PRN PRN PRN Reason: Flush Last Admin: 11/28/20 15:10 Dose: 500 unit Documented by: SUZANNE Hydrochlorothiazide (Hydrochlorothiazide 25 Mg Tablet) 25 mg PO DAILY [facility] Sodium Chloride (Normal Saline 0.9%) 1,000 mls @ 1,000 mls/hr IV BOLUS PRN PRN Reason: Fluid replacement Last Infusion: 11/28/20 15:06 Dose: 0 mls/hr Documented by: Admin: 11/28/20 11:21 Dose: 1,000 mls/hr Documented by: SUZANNE Lidocaine (Remove Lidocaine Patch) 2 each TOP BEDTIME [facility] Stop: 11/28/20 22:00 Lidocaine (Lidocaine Patch 1 Each Adh..Patch) 1 each TOP DAILY [facility] Last Admin: 11/28/20 16:11 Dose: 1 each Documented by: SUZANNE Lidocaine (Remove Lidocaine Patch) 1 each TOP BEDTIME [facility] Losartan Potassium (Losartan 50 Mg Tablet) 100 mg PO DAILY [facility] Metformin HCl (Metformin Hcl 500 Mg Tablet) 1,000 mg PO DAILY [facility] Naloxone HCl (Naloxone 0.4 Mg/Ml Vial) 0.2 mg IV Q2MIN PRN PRN Reason: Opiate Reversal Oxycodone/Acetaminophen (Oxycodone/Acetaminophen 5/325 Tablet) 2 tab PO Q4HR PRN PRN Reason: Pain, Severe (7-10) Discontinued Medications Hydrocodone Bitart/Acetaminophen (Hydrocodone/Acet 5/325 Tablet) 1 tab PO NOW ONE Stop: 11/28/20 12:56 Last Admin: 11/28/20 13:36 Dose: 1 tab Documented by: SUZANNE Hydrocodone Bitart/Acetaminophen (Hydrocodone/Acet 5/325 Tablet) 1 tab PO NOW ONE Stop: 11/28/20 15:51 Last Admin: 11/28/20 16:05 Dose: 1 tab Documented by: SUZANNE Lidocaine (Lidocaine Patch 1 Each Adh..Patch) 1 each TOP NOW ONE Stop: 11/28/20 12:56 Last Admin: 11/28/20 13:36 Dose: 1 each Documented by: SUZANNE Lidocaine (Lidocaine Patch 1 Each Adh..Patch) 1 each TOP DAILY [facility] Lidocaine HCl (Lidocaine 1% (Pf)) 2 ml INJ NOW ONE Stop: 11/28/20 14:28 Last Admin: 11/28/20 15:07 Dose: 0.2 ml Documented by: SUZANNE Methocarbamol (Methocarbamol 500 Mg Tablet) 500 mg PO NOW ONE Stop: 11/28/20 15:10 Last Admin: 11/28/20 15:22 Dose: 500 mg Documented by: AYALA Vital Signs Vital signs: Vital Signs - 8 hr 11/28/20 11:39 11/28/20 12:00 11/28/20 12:30 Pulse Rate 94 H 95 H 89 Respiratory Rate 23 28 H Blood Pressure 161/73 H 147/74 H 150/65 H Pulse Oximetry 98 99 99 11/28/20 13:00 11/28/20 13:30 11/28/20 14:00 Pulse Rate 90 96 H Respiratory Rate 24 28 H Blood Pressure 149/65 H 147/64 H 129/77 Pulse Oximetry 99 99 11/28/20 14:30 11/28/20 14:31 11/28/20 15:00 Pulse Rate 93 H 93 H 92 H Respiratory Rate 24 23 Blood Pressure 136/68 Pulse Oximetry 96 96 99 11/28/20 15:53 11/28/20 15:54 11/28/20 16:00 Pulse Rate 94 H 101 H 100 H Respiratory Rate Blood Pressure 134/73 137/72 Pulse Oximetry 83 L 98 99 11/28/20 16:15 11/28/20 16:30 11/28/20 17:00 Pulse Rate 95 H 98 H 99 H Respiratory Rate Blood Pressure 134/72 133/70 142/69 H Pulse Oximetry 99 98 98 11/28/20 17:30 11/28/20 18:30 11/28/20 19:00 Pulse Rate 95 H 96 H 84 Respiratory Rate Blood Pressure 132/98 H Pulse Oximetry 96 95 94 <Jhian Young, DO - Last Filed: 11/28/20 19:30> Orders Ordered: ED Orders 11/28/20 11:09 CT cervical spine wo con Stat CT head/brain wo con Stat XR pelvis 1-2V Stat 11/28/20 11:11 CT thoracic spine wo con Stat XR knee RT 3V Stat 11/28/20 11:47 Complete Blood Count AUTO DIFF Stat Comprehensive Metabolic Panel Stat Creatine Kinase Stat Lactate (Lactic Acid) Stat Lipase Stat Partial Thromboplastin Time Stat Prothrombin Time INR Stat Type and Screen Stat 11/28/20 15:09 Consult to BUSINESS PROPOSAL REP - Slurry Worker Stat 11/28/20 17:39 CT LE RT wo con Stat 11/28/20 18:38 Education, smoking cessation ONGOING Acetaminophen (Acetaminophen 325 Mg Tablet) 650 mg PO Q6HR PRN PRN Reason: Fever/Mild Pain (1-3) Hydrocodone Bitart/Acetaminophen (Hydrocodone/Acet 5/325 Tablet) 1 tab PO Q4HR PRN PRN Reason: Pain, Moderate (4-6) Diclofenac Sodium (Diclofenac [address] Tablet) 50 mg PO DAILY [facility] Enoxaparin Sodium (Enoxaparin 40 Mg/0.4 Ml Syringe) 40 mg SUBCUT DAILY [facility] Heparin Sodium (Porcine) (Heparin 500 Unit/5 Ml Port Flush) 500 unit IV PRN PRN PRN Reason: Flush Last Admin: 11/28/20 15:10 Dose: 500 unit Documented by: SUZANNE Hydrochlorothiazide (Hydrochlorothiazide 25 Mg Tablet) 25 mg PO DAILY [facility] Sodium Chloride (Normal Saline 0.9%) 1,000 mls @ 1,000 mls/hr IV BOLUS PRN PRN Reason: Fluid replacement Last Infusion: 11/28/20 15:06 Dose: 0 mls/hr Documented by: Admin: 11/28/20 11:21 Dose: 1,000 mls/hr Documented by: SUZANNE Lidocaine (Remove Lidocaine Patch) 2 each TOP BEDTIME [facility] Stop: 11/28/20 22:00 Lidocaine (Lidocaine Patch 1 Each Adh..Patch) 1 each TOP DAILY [facility] Last Admin: 11/28/20 16:11 Dose: 1 each Documented by: SUZANNE Lidocaine (Remove Lidocaine Patch) 1 each TOP BEDTIME [facility] Losartan Potassium (Losartan 50 Mg Tablet) 100 mg PO DAILY [facility] Metformin HCl (Metformin Hcl 500 Mg Tablet) 1,000 mg PO DAILY [facility] Naloxone HCl (Naloxone 0.4 Mg/Ml Vial) 0.2 mg IV Q2MIN PRN PRN Reason: Opiate Reversal Oxycodone/Acetaminophen (Oxycodone/Acetaminophen 5/325 Tablet) 2 tab PO Q4HR PRN PRN Reason: Pain, Severe (7-10) Discontinued Medications Hydrocodone Bitart/Acetaminophen (Hydrocodone/Acet 5/325 Tablet) 1 tab PO NOW ONE Stop: 11/28/20 12:56 Last Admin: 11/28/20 13:36 Dose: 1 tab Documented by: SUZANNE Hydrocodone Bitart/Acetaminophen (Hydrocodone/Acet 5/325 Tablet) 1 tab PO NOW ONE Stop: 11/28/20 15:51 Last Admin: 11/28/20 16:05 Dose: 1 tab Documented by: SUZANNE Lidocaine (Lidocaine Patch 1 Each Adh..Patch) 1 each TOP NOW ONE Stop: 11/28/20 12:56 Last Admin: 11/28/20 13:36 Dose: 1 each Documented by: SUZANNE Lidocaine (Lidocaine Patch 1 Each Adh..Patch) 1 each TOP DAILY [facility] Lidocaine HCl (Lidocaine 1% (Pf)) 2 ml INJ NOW ONE Stop: 11/28/20 14:28 Last Admin: 11/28/20 15:07 Dose: 0.2 ml Documented by: SUZANNE Methocarbamol (Methocarbamol 500 Mg Tablet) 500 mg PO NOW ONE Stop: 11/28/20 15:10 Last Admin: 11/28/20 15:22 Dose: 500 mg Documented by: AYALA Vital Signs Vital signs: Vital Signs - 8 hr 11/28/20 11:39 11/28/20 12:00 11/28/20 12:30 Pulse Rate 94 H 95 H 89 Respiratory Rate 23 28 H Blood Pressure 161/73 H 147/74 H 150/65 H Pulse Oximetry 98 99 99 11/28/20 13:00 11/28/20 13:30 11/28/20 14:00 Pulse Rate 90 96 H Respiratory Rate 24 28 H Blood Pressure 149/65 H 147/64 H 129/77 Pulse Oximetry 99 99 11/28/20 14:30 11/28/20 14:31 11/28/20 15:00 Pulse Rate 93 H 93 H 92 H Respiratory Rate 24 23 Blood Pressure 136/68 Pulse Oximetry 96 96 99 11/28/20 15:53 11/28/20 15:54 11/28/20 16:00 Pulse Rate 94 H 101 H 100 H Respiratory Rate Blood Pressure 134/73 137/72 Pulse Oximetry 83 L 98 99 11/28/20 16:15 11/28/20 16:30 11/28/20 17:00 Pulse Rate 95 H 98 H 99 H Respiratory Rate Blood Pressure 134/72 133/70 142/69 H Pulse Oximetry 99 98 98 11/28/20 17:30 11/28/20 18:30 11/28/20 19:00 Pulse Rate 95 H 96 H 84 Respiratory Rate Blood Pressure 132/98 H Pulse Oximetry 96 95 94 MDM - Fall <MELISA Childs-BC - Last Filed: 11/28/20 16:30> Lab Data Attestation: I reviewed the patient's lab results. Result diagrams: 11/28/20 11:47 11/28/20 11:47 Labs: Lab Results 11/28/20 11/28/20 11/28/20 Range/Units 11:47 11:47 11:47 WBC 8.7 (4.5-11.0) X10^3/uL RBC 3.99 L (4.0-5.2) X10^6/uL Hgb 12.2 (12.0-16.0) g/dL Hct 36.5 (36-46) % MCV 91.3 (80-100) fL MCH 30.5 (26-34) PG MCHC 33.3 (30-36) % RDW 14.6 (11.6-14.8) % Plt Count 302 (150-400) X10^3/uL Neut % (Auto) 81.3 H (50-75) % Lymph % (Auto) 8.2 L (25-40) % Dooly % (Auto) 10.1 (3-14) % Eos % (Auto) 0.0 L (2-4) % Baso % (Auto) 0.4 (0-2) % Neut # (Auto) 7100 H (9689-0798) /uL Lymph # (Auto) 700 L (7185-2362) /uL Dooly # (Auto) 900 (0-900) /uL Eos # (Auto) 0 (0-450) /uL Baso # (Auto) 0 (0-100) /uL PT (10.1-12.7) SECONDS INR (0.9-1.3) APTT (26.4-36.2) SECONDS Sodium 139 (137-145) mmol/L Potassium 3.8 (3.4-5.1) mmol/L Chloride 105 (98-107) mmol/L Carbon Dioxide 26 (22-32) mmol/L BUN 22 H (7-17) mg/dL Creatinine 0.77 (0.52-1.04) mg/dL Estimated GFR > 60.0 (>60) mL/min BUN/Creatinine Ratio 28.6 H (6-22) Glucose 157 H (80-110) mg/dL Lactate 0.7 (0.7-2.1) mmol/L Calcium 10.1 (8.4-10.2) mg/dL Total Bilirubin 0.9 (0.2-1.3) mg/dL AST 32 (14-36) IU/L ALT 26 (<35) IU/L Alkaline Phosphatase 155 H (38-126) U/L Total Creatine Kinase 286 H (30-135) U/L Total Protein 7.8 (6.3-8.2) g/dL Albumin 4.1 (3.5-5.0) g/dL Globulin 3.7 (1.7-4.1) g/dL Albumin/Globulin Ratio 1.1 (1.0-2.8) Lipase (23-300) U/L Blood Type Antibody Screen 11/28/20 11/28/20 11/28/20 Range/Units 11:47 11:47 11:47 WBC (4.5-11.0) X10^3/uL RBC (4.0-5.2) X10^6/uL Hgb (12.0-16.0) g/dL Hct (36-46) % MCV (80-100) fL MCH (26-34) PG MCHC (30-36) % RDW (11.6-14.8) % Plt Count (150-400) X10^3/uL Neut % (Auto) (50-75) % Lymph % (Auto) (25-40) % Dooly % (Auto) (3-14) % Eos % (Auto) (2-4) % Baso % (Auto) (0-2) % Neut # (Auto) (6168-2642) /uL Lymph # (Auto) (3170-0655) /uL Dooly # (Auto) (0-900) /uL Eos # (Auto) (0-450) /uL Baso # (Auto) (0-100) /uL PT 14.6 H (10.1-12.7) SECONDS INR 1.3 (0.9-1.3) APTT 30 (26.4-36.2) SECONDS Sodium (137-145) mmol/L Potassium (3.4-5.1) mmol/L Chloride (98-107) mmol/L Carbon Dioxide (22-32) mmol/L BUN (7-17) mg/dL Creatinine (0.52-1.04) mg/dL Estimated GFR (>60) mL/min BUN/Creatinine Ratio (6-22) Glucose (80-110) mg/dL Lactate (0.7-2.1) mmol/L Calcium (8.4-10.2) mg/dL Total Bilirubin (0.2-1.3) mg/dL AST (14-36) IU/L ALT (<35) IU/L Alkaline Phosphatase (38-126) U/L Total Creatine Kinase (30-135) U/L Total Protein (6.3-8.2) g/dL Albumin (3.5-5.0) g/dL Globulin (1.7-4.1) g/dL Albumin/Globulin Ratio (1.0-2.8) Lipase 44 (23-300) U/L Blood Type O Positive Antibody Screen Negative Imaging Data Extremity x-ray #1: Radiologist's Impression: [address] [place] [address] [id number] ReportSigned Patient: Chavez Price#: [id number]: 1940Acct:[id number]/Sex: 80 / FDate of Service: 11/28/20Loc: EDAccession Number: [id number] Procedure: XR knee RT 3V Ordering Provider: Laura Leon-GAYLE PROCEDURE: XR KNEE RT 3V INDICATIONS: pain sp glf right knee TECHNIQUE: 3 views of the knee were acquired. COMPARISON: [facility], , XR PELVIS 1-2V, 11/28/2020, 11:18. FINDINGS: Bones: Diffuse osteopenia. Severe tricompartmental degenerative changes of the right knee with moderate joint space loss. Marginal osteophyte formation. There is cortical irregularity and gap like lucency seen only on the sunrise view of the medial patella. There is moderate overlying soft tissue swelling and a large joint effusion. Alignment is anatomic. Soft tissues: There is a large joint effusion with likely capsular calcifications. No suspicious soft tissue calcifications. IMPRESSION: 1. Cortical irregularity in cap like lucency involving the medial wall of the patella seen only on the sunrise view which in combination with history of fall, large suprapatellar joint effusion, and soft tissue swelling is suspicious for possible patellar fracture. Recommend correlation with examination for area of tenderness. 2. Severe tricompartmental osteoarthritic changes of the right knee. Dictated by: Tate Musa M.D. on 11/28/2020 at 11:55 Approved by: Tate Musa M.D. on 11/28/2020 at 11:59 Extremity x-ray #2: Radiologist's Impression: [address] [place] [address] [id number] ReportSigned Patient: Chavez Price#: [id number]: 1940Acct:[id number]/Sex: 80 / FDate of Service: 11/28/20Lo: EDAccession Number: [id number] Procedure: XR pelvis 1-2V Ordering Provider: Laura Leon PROCEDURE: XR PELVIS 1-2V INDICATIONS: pain sp glf TECHNIQUE: Single AP view(s) of the pelvis acquired. COMPARISON: None. FINDINGS: Bones: No definite acute fractures. Postoperative changes from left total hip arthroplasty with likely reactive/mechanical changes surrounding the acetabular cup component. No evidence for hardware loosening or failure. Moderate-severe osteoarthritic changes of the right hip. Visualized portions of the pelvic ring appear intact. Degenerative changes of the lower lumbar spine. No suspicious bony lesions. Soft tissues: Visualized bowel gas pattern is normal. No suspicious soft tissue calcifications. IMPRESSION: 1. Pelvis without acute fracture. 2. Moderate-severe right hip osteoarthrosis. 3. Status post left total hip arthroplasty without evidence for hardware loosening or failure. Dictated by: Tate Musa M.D. on 11/28/2020 at 12:00 Approved by: Tate Musa M.D. on 11/28/2020 at 12:02 CT scan - head: Radiologist's Impression: [address] [place] [address] Scan ReportSigned Patient: Chavez Price#: [id number]: 1940Acct:[id number]/Sex: 80 / FDate of Service: 11/28/20Loc: EDAccession Number: [id number] Procedure: CT head/brain wo con Ordering Provider: Laura Leon PROCEDURE: CT HEAD/BRAIN WO CON INDICATIONS: pain sp glf TECHNIQUE: Noncontrast 4.5 mm thick angled axial sections acquired from the foramen magnum to the vertex, with coronal and sagittal reformats. For radiation dose reduction, the following was used: automated exposure control, adjustment of mA and/or kV according to patient size. COMPARISON: None. FINDINGS: Image quality: Excellent. CSF spaces: Basal cisterns are patent. No extra-axial fluid collections. The ventricles are symmetric in size and shape. Brain: No intracranial bleeds or masses. There is moderate cerebral volume loss for age, with resultant ventricular and sulcal prominence. There are moderate periventricular and deep white matter chronic small vessel ischemic changes. There is intracranial internal carotid artery atherosclerosis. Skull and face: There is right periorbital soft tissue swelling. Suggestion of possible nondisplaced posterolateral right orbital wall fracture with associated layering fluid in the right maxillary sinus. This is best seen on axial image 6, series 4. Remainder of the calvarium and visualized facial bones appear intact, without suspicious lesions. Sinuses: Mucosal thickening and layering fluid within the right maxillary sinus and posterior sphenoid sinuses. Remainder of the visualized paranasal sinuses and mastoids are clear. IMPRESSION: 1. CT head without acute intracranial abnormalities. 2. Possible nondisplaced posterolateral right orbital wall fracture with right periorbital soft tissue swelling. Recommend correlation with physical examination for area of patient's pain. 3. Right maxillary and sphenoid sinus disease. 4. Age related senescent changes and sequela of chronic small vessel ischemic disease. Dictated by: Tate Musa M.D. on 11/28/2020 at 12:02 Approved by: Tate Musa M.D. on 11/28/2020 at 12:11 CT - cervical spine: Radiologist's Impression: [address] [place] [id number] Scan ReportSigned Patient: Chavez Price#: [id number]: 1940Acct:[id number]/Sex: 80 / FDate of Service: 11/28/20Loc: EDAccession Number: [id number] Procedure: CT cervical spine wo con Ordering Provider: Laura Leon PROCEDURE: CT CERVICAL SPINE WO CON INDICATIONS: pain sp glf TECHNIQUE: Noncontrast 3 mm thick sections acquired from the skull base to the T4 level. Sagittal and coronal reformats were then constructed. For radiation dose reduction, the following was used: automated exposure control, adjustment of mA and/or kV according to patient size. COMPARISON: None. FINDINGS: Image quality: Excellent. Bones: No acute fractures or dislocations. No acute compression fractures of the vertebral bodies. Craniocervical junction is intact. C1-C2 relationship is preserved. Visualized superior ribs are intact. Severe degenerative changes of the C1-C2 articulation. Moderate-severe multilevel cervical spondylosis throughout the imaged cervical spine with severe disc space loss at C5-6 and C6-7. Degenerative endplate changes and prominent endplate osteophytes are seen throughout the cervical spine but most pronounced from C3-4 through C6-7. Moderate multilevel facet arthropathy. Straightening of cervical lordosis. Degenerative changes of the bilateral temporomandibular joints. The possible nondisplaced fracture involving the posterolateral right orbital wall is not appreciated on this study. It may have represented a prominent nutrient foramen. Soft tissues: Prevertebral soft tissues are normal in thickness. No paravertebral hematomas. No apical pneumothoraces. Layering fluid and mucosal thickening of the right maxillary sinus. Layering fluid seen in the sphenoid sinuses. Mastoid air cells appear clear. IMPRESSION: 1. Cervical spine without acute fracture or dislocation. 2. Moderate-severe multilevel cervical spondylosis and associated facet arthropathy. 3. The possible nondisplaced posterolateral right orbital wall fracture described on comparison CT is not appreciated on this exam and may have represented a nutrient foramen . 4. Right maxillary and scattered sphenoid sinus disease. 5. Mild straightening of normal cervical lordosis likely related to positioning and/or concurrent muscle spasms. Dictated by: Tate Musa M.D. on 11/28/2020 at 12:13 Approved by: Tate Musa M.D. on 11/28/2020 at 12:[address]: Radiologist's Impression: [address] [place] [id number] Scan ReportSigned Patient: Chavez Price#: [id number]: 1940Acct:[id number]/Sex: 80 / FDate of Service: 11/28/20Loc: EDAccession Number: [id number] Procedure: CT thoracic spine wo con Ordering Provider: Laura Leon PROCEDURE: CT THORACIC SPINE WO CON INDICATIONS: pain sp hitting back on tub TECHNIQUE: Noncontrast 3 mm thick sections acquired through the region of interest in the thoracic spine. Sagittal and coronal reformats were then constructed. For radiation dose reduction, the following was used: automated exposure control. COMPARISON: [facility], CT, CT CHEST ABD PEL W CON, 05/14/2019, 15:29. FINDINGS: Image quality: Excellent. Bones: There is normal overall bony alignment. No acute vertebral body compression fractures. No suspicious sclerotic or lytic bony lesions. Central spinal canal is of normal overall caliber. Mild multilevel spondylitic changes. Soft tissues: No paravertebral masses or hematomas. Visualized posteromedial lungs appear clear. A few calcified pulmonary granulomas. Minimal dependent atelectasis. No hilar or mediastinal adenopathy. Stable appearance of bilateral renal cysts. Very small hiatal hernia. IMPRESSION: 1. Thoracic spine without acute fracture or malalignment. 2. Mild multilevel thoracic spondylosis. 3. Chronic findings as above. Dictated by: Tate Musa M.D. on 11/28/2020 at 12:22 Approved by: Tate Musa M.D. on 11/28/2020 at 12:33 [facility] Narrative Medical decision making narrative: The patient is an 80-year-old female who presents after a ground level fall last night. She stayed on her bathroom floor overnight. Fortunately rectal signs are stable, no elevation of her creatinine, her total CK is not grossly elevated. She does complain of acute on chronic right knee pain, is noted to have a patellar fracture on x-ray. She is neurovascularly intact. She has diffuse hip pain, but has negative pelvic x-rays. she does have pain to C and T-spine, so CTs were obtained with no acute findings. Head CT has no acute findings as well. There is a suggestion of a possible orbital wall fracture on her head CT that is not present on her CT C-spine and she has no tenderness to her face and head. Thus I do believe that this finding on her head CT is related to a nutrient density as found on her CT C-spine. The patient feels much improved after the above-stated therapies. She is placed in a knee immobilizer. She is able to ambulate with a walker after, though does have increased pain. She is re-dosed with pain medication. Given difficulties getting back to [facility], DAIN Gillespie is to see the patient. However overall she is very fortunate from her incident, normal renal function, no elevated CPK, normal T-spine CT, normal CT C-spine and normal head CT. I discussed at length the importance of follow-up with primary care provider, she may benefit from home health, she may benefit from physical therapy, discussed rest ice compression elevation. Patient signed out to Dr. Young at 4:15 p.m. pending [employer] consult. <Jihan Hector, DO - Last Filed: 11/28/20 19:30> Lab Data Attestation: I reviewed the patient's lab results. Labs: Lab Results 11/28/20 11/28/20 11/28/20 Range/Units 11:47 11:47 11:47 WBC 8.7 (4.5-11.0) X10^3/uL RBC 3.99 L (4.0-5.2) X10^6/uL Hgb 12.2 (12.0-16.0) g/dL Hct 36.5 (36-46) % MCV 91.3 (80-100) fL MCH 30.5 (26-34) PG MCHC 33.3 (30-36) % RDW 14.6 (11.6-14.8) % Plt Count 302 (150-400) X10^3/uL Neut % (Auto) 81.3 H (50-75) % Lymph % (Auto) 8.2 L (25-40) % [place] % (Auto) 10.1 (3-14) % Eos % (Auto) 0.0 L (2-4) % Baso % (Auto) 0.4 (0-2) % Neut # (Auto) 7100 H (0163-1303) /uL Lymph # (Auto) 700 L (9027-5894) /uL [place] # (Auto) 900 (0-900) /uL Eos # (Auto) 0 (0-450) /uL Baso # (Auto) 0 (0-100) /uL PT (10.1-12.7) SECONDS INR (0.9-1.3) APTT (26.4-36.2) SECONDS Sodium 139 (137-145) mmol/L Potassium 3.8 (3.4-5.1) mmol/L Chloride 105 (98-107) mmol/L Carbon Dioxide 26 (22-32) mmol/L BUN 22 H (7-17) mg/dL Creatinine 0.77 (0.52-1.04) mg/dL Estimated GFR > 60.0 (>60) mL/min BUN/Creatinine Ratio 28.6 H (6-22) Glucose 157 H (80-110) mg/dL Lactate 0.7 (0.7-2.1) mmol/L Calcium 10.1 (8.4-10.2) mg/dL Total Bilirubin 0.9 (0.2-1.3) mg/dL AST 32 (14-36) IU/L ALT 26 (<35) IU/L Alkaline Phosphatase 155 H (38-126) U/L Total Creatine Kinase 286 H (30-135) U/L Total Protein 7.8 (6.3-8.2) g/dL Albumin 4.1 (3.5-5.0) g/dL Globulin 3.7 (1.7-4.1) g/dL Albumin/Globulin Ratio 1.1 (1.0-2.8) Lipase (23-300) U/L Blood Type Antibody Screen 11/28/20 11/28/20 11/28/20 Range/Units 11:47 11:47 11:47 WBC (4.5-11.0) X10^3/uL RBC (4.0-5.2) X10^6/uL Hgb (12.0-16.0) g/dL Hct (36-46) % MCV (80-100) fL MCH (26-34) PG MCHC (30-36) % RDW (11.6-14.8) % Plt Count (150-400) X10^3/uL Neut % (Auto) (50-75) % Lymph % (Auto) (25-40) % [place] % (Auto) (3-14) % Eos % (Auto) (2-4) % Baso % (Auto) (0-2) % Neut # (Auto) (3662-4330) /uL Lymph # (Auto) (3006-0559) /uL [place] # (Auto) (0-900) /uL Eos # (Auto) (0-450) /uL Baso # (Auto) (0-100) /uL PT 14.6 H (10.1-12.7) SECONDS INR 1.3 (0.9-1.3) APTT 30 (26.4-36.2) SECONDS Sodium (137-145) mmol/L Potassium (3.4-5.1) mmol/L Chloride (98-107) mmol/L Carbon Dioxide (22-32) mmol/L BUN (7-17) mg/dL Creatinine (0.52-1.04) mg/dL Estimated GFR (>60) mL/min BUN/Creatinine Ratio (6-22) Glucose (80-110) mg/dL Lactate (0.7-2.1) mmol/L Calcium (8.4-10.2) mg/dL Total Bilirubin (0.2-1.3) mg/dL AST (14-36) IU/L ALT (<35) IU/L Alkaline Phosphatase (38-126) U/L Total Creatine Kinase (30-135) U/L Total Protein (6.3-8.2) g/dL Albumin (3.5-5.0) g/dL Globulin (1.7-4.1) g/dL Albumin/Globulin Ratio (1.0-2.8) Lipase 44 (23-300) U/L Blood Type O Positive Antibody Screen Negative Imaging Data CT LE: Radiologist's Impression: PROCEDURE: CT LE RT WO CON INDICATIONS: severe pain unable to ambulate, right knee pain TECHNIQUE: Noncontrast 1-1.5 mm axial sections acquired from the mid-patella to the proximal tibia, with coronal and sagittal reformats. COMPARISON: [facility], CR, XR KNEE RT 3V, 11/28/2020, 11:18. FINDINGS: Image quality: Excellent. Extensive degenerative changes are present at the knee joint including moderate to severe medial as well as patellofemoral compartment narrowing. There are significant areas of periarticular osteophytes. Large suprapatellar effusion is present. The area irregularity noted within the patella on the x-ray of 11/28/2020 there is to correspond to areas of severe degenerative change and osteophyte formation. No definitive fracture is clearly identified within this region on CT exam. Muscular structures are within normal limits. IMPRESSION: 1. Significant degenerative changes without definitively identified fracture. Prominent suprapatellar effusion. Dictated by: Christine Mohan M.D. on 11/28/2020 at 17:17 MDM Narrative Medical decision making narrative: Patient is really unable to ambulate far despite knee immobilizer and walker. She lives alone. Long discussion of how to get patient home do we would be able to get patient to the very terminal and taxi cab however patient is unable to get from the taxi cab to the ticket line for the [place] and then onto the [place] itself. She would have help tomorrow but she still lives alone. At I ordered CT of lower extremity to confirm fracture however there is no identified fracture on the CT. Patient right knee pain and swelling is so bad it caused her to fall last evening. She is not safe to be discharged home. Dr. Salinas updated patient's symptoms test results agrees with observation for the night. Discharge Plan Departure Patient Disposition: Admitted as Observation Clinical Impression: Fall from ground level, Neck muscle spasm, Weakness, Acute pain of right knee Back pain Qualifiers: Back pain location: thoracic back pain Chronicity: acute Back pain laterality: bilateral Qualified Code(s): M54.6 - Pain in thoracic spine Admit Date/Time: 11/28/20 19:09 Admit Provider: Jovon Salinas <Jihan Young DO - Last Filed: 11/28/20 19:30> Cosign ED Attending Cosignature Attestation: I was immediately available in the department for consultation. Documentation has been reviewed. I agree with assessment and plan.
[2020-11-28 11:59] LABS: Add Manual Diff / Slide Review NO; Basophils Absolute Auto 0 /uL (0-100); Basophils Percent Auto 0.4 % (0-2); Eosinophils Absolute Auto 0 /uL (0-450); Hematocrit 36.5 % (36-46); Hemoglobin 12.2 g/dL (12.0-16.0); Lymphocytes Absolute Auto 700 /uL (1100-4500); Lymphocytes Percent Auto 8.2 % (25-40); Mean Corpuscular HGB Conc 33.3 % (30-36); Mean Corpuscular Hemoglobin 30.5 PG (26-34); Mean Corpuscular Volume 91.3 fL (80-100); Monocytes Absolute Auto 900 /uL (0-900); Monocytes Percent Auto 10.1 % (3-14); Neutrophils Absolute Auto 7100 /uL (1500-7000); Neutrophils Percent Auto 81.3 % (50-75); Platelet Count 302 X10^3/uL (150-400); Red Blood Cell Count 3.99 X10^6/uL (4.0-5.2); Red Cell Distribution Width 14.6 % (11.6-14.8); White Blood Cell Count 8.7 X10^3/uL (4.5-11.0)
[2020-11-28 12:06] LABS: INR 1.3 (0.9-1.3); Prothrombin Time 14.6 SECONDS (10.1-12.7)
[2020-11-28 12:09] LABS: PTT Partial Thromboplastin Tim 30 SECONDS (26.4-36.2)
[2020-11-28 12:12] LABS: Alanine Aminotransferase 26 IU/L (<35); Albumin 4.1 g/dL (3.5-5.0); Albumin Globulin Ratio 1.1 (1.0-2.8); Alkaline Phosphatase 155 U/L (38-126); Aspartate Aminotransferase 32 IU/L (14-36); BUN Creatinine Ratio 28.6 (6-22); Bilirubin Total 0.9 mg/dL (0.2-1.3); Blood Urea Nitrogen 22 mg/dL (7-17); Calcium 10.1 mg/dL (8.4-10.2); Carbon Dioxide 26 mmol/L (22-32); Chloride 105 mmol/L (98-107); Creatine Kinase 286 U/L (30-135); Estimated Glomerular Filt Rate > 60.0 mL/min (>60); Globulin 3.7 g/dL (1.7-4.1); Glucose 157 mg/dL (80-110); Lipase 44 U/L (23-300); Potassium 3.8 mmol/L (3.4-5.1); Sodium 139 mmol/L (137-145); Total Protein 7.8 g/dL (6.3-8.2)
[2020-11-28 12:14] LABS: Lactate (Lactic Acid) 0.7 mmol/L (0.7-2.1)
[2020-11-28 12:28] LABS: HEMOLYSIS 18 (0-50)
[2020-11-28] MEDS: LIDOCAINE PATCH 1 EACH ADH..PATCH TOP ×2 (13:36→16:11)
[2020-11-28] MEDS: HYDROCODONE/ACET 5/325 TABLET 1 TAB PO ×3 (13:36→22:34)
[2020-11-28] MEDS: LIDOCAINE 1% (PF) 2 ML INJ (15:07)
[2020-11-28] MEDS: methocarbamoL 500 MG TABLET PO (15:22)
--- NOTE | 2020-11-28 16:28 | PC.NURSE ---
Addendum entered by Cristobal Su CNA 11/28/20 16:49: Pt. was stable while walking and required minimum assistance with using the walker. Original Note: patient had back pain while walking and was able to ambulate a short distance, provider ordering pain medications.
--- NOTE | 2020-11-28 17:39 | DI.CT.S_ITS ---
PROCEDURE: CT LE RT WO CON INDICATIONS: severe pain unable to ambulate, right knee pain TECHNIQUE: Noncontrast 1-1.5 mm axial sections acquired from the mid-patella to the proximal tibia, with coronal and sagittal reformats. COMPARISON: [facility], CR, XR KNEE RT 3V, 11/28/2020, 11:18. FINDINGS: Image quality: Excellent. Extensive degenerative changes are present at the knee joint including moderate to severe medial as well as patellofemoral compartment narrowing. There are significant areas of periarticular osteophytes. Large suprapatellar effusion is present. The area irregularity noted within the patella on the x-ray of 11/28/2020 there is to correspond to areas of severe degenerative change and osteophyte formation. No definitive fracture is clearly identified within this region on CT exam. Muscular structures are within normal limits. IMPRESSION: 1. Significant degenerative changes without definitively identified fracture. Prominent suprapatellar effusion. Dictated by: Christine Mohan M.D. on 11/28/2020 at 17:17 Approved by: Christine Mohan M.D. on 11/28/2020 at 17:34
--- NOTE | 2020-11-28 17:57 | P.HP_ITS ---
History of Present Illness History of Present Illness Date Patient Seen: 11/28/20 Chief complaint: Fall Narrative: This is an 80-year-old female with past medical history of breast cancer status post lumpectomy and chemo, osteoporosis, type 2 diabetes, hypertension, hyperlipidemia lives in [facility] who presented to the hospital with complaint of pain in her right knee. Patient reports having had a mechanical fall at home last night while in the bathroom. She denies head strike or loss consciousness. She says that she crawled to the other room and laid on the blanket. She states that this morning she called a friend who came to help her. She was unable to get up or ambulate and thus EMS was contacted. Patient was airlifted to [facility] where she was found to have patellar fracture on right knee x-ray. There is also evidence of possible orbital wall fracture on head CT however the patient did not have any bruising or pain in the area that was suggested, which lowered the suspicion of any facial trauma. Also, the patient denied any head trauma. Unfortunately, the patient was unable to ambulate and she lives at home alone and that she is being admitted to the hospital for rehab evaluation and further care. Patient History Medical History Arthritis Diabetes HLD (hyperlipidemia) Hypertension Rheumatic fever Surgical History H/O hernia repair H/O left knee surgery History of biopsy (02/23/19) History of left hip replacement Family & Social History Family History Mother Heart disease Social History: household members none Safety & Behavioral: Feels Safe in Current Yes Environment Been Physically Hurt or No Threatened By a Person Tobacco & Substance use: Smoking Status Never smoker alcohol intake never Substance Use Type does not use Meds Home Medications and Allergies Home Medications Medication Instructions Recorded Confirmed Type diclofenac potassium 50 mg tablet 50 mg PO DAILY #90 tab 03/24/19 09/04/20 Rx hydrochlorothiazide 25 mg tablet 25 mg PO DAILY #90 tab 03/24/19 09/04/20 Rx losartan 100 mg tablet 100 mg PO DAILY #90 tab 03/24/19 09/04/20 Rx metformin 1,000 mg PO DAILY 10/07/19 09/04/20 History letrozole 2.5 mg PO DAILY #30 tab 04/06/20 09/04/20 Rx lidocaine 1 patch TOPICAL DAILY PRN #15 ea 11/28/20 Rx Allergies Allergy/AdvReac Type Severity Reaction Status Date / Time diphenhydramine Allergy Intermediate Numbness Verified 11/28/20 11:13 [From Motrin PM] ibuprofen [From Motrin PM] Allergy Intermediate Facial Verified 11/28/20 11:13 Numbness cephalexin Allergy Unknown unknown Verified 11/28/20 11:13 codeine Allergy Unknown didn't Verified 11/28/20 11:13 feel good indomethacin [From Indocin] Allergy Unknown unknown Verified 11/28/20 11:13 naproxen Allergy Unknown agrivated Verified 11/28/20 11:13 arthritis simvastatin Allergy Unknown unknown Verified 11/28/20 11:13 latex AdvReac Intermediate Rash Verified 11/28/20 11:13 Review of Systems Review of Systems ROS: Yes All systems reviewed with the patient and are negative except as otherwise documented Constitutional Constitutional: Denies excessive sweating, Denies fever(s) and Reports frequent falls Eyes Eyes: Denies diplopia ENT Ears, Nose, Mouth, and Throat: No abnormal hearing Cardiovascular Cardiovascular: Denies chest pain, Denies diaphoresis, Denies syncope and Denies dyspnea Respiratory Respiratory: Denies cough and Denies dyspnea Gastrointestinal Gastrointestinal: Denies abdominal pain and Denies vomiting Genitourinary Genitourinary: Denies difficulty voiding Musculoskeletal Comments: Right knee pain Neurologic Neurologic: Denies abnormal hearing, Denies syncope and Reports frequent falls Psychiatric Psychiatric: Denies change in appetite Endocrine Endocrine: Denies excessive sweating Exam Vital Signs (past 8 hours): - 11/28/20 11:09 11/28/20 11:10 11/28/20 11:39 Temperature 98.9 F Pulse Rate 99 H 98 H 94 H Respiratory Rate 20 Blood Pressure 158/76 H 161/73 H Pulse Oximetry 98 98 98 11/28/20 12:00 11/28/20 12:30 11/28/20 13:00 Temperature Pulse Rate 95 H 89 Respiratory Rate 23 28 H Blood Pressure 147/74 H 150/65 H 149/65 H Pulse Oximetry 99 99 11/28/20 13:30 11/28/20 14:00 11/28/20 14:30 Temperature Pulse Rate 90 96 H 93 H Respiratory Rate 24 28 H 24 Blood Pressure 147/64 H 129/77 Pulse Oximetry 99 99 96 11/28/20 14:31 11/28/20 15:00 11/28/20 15:53 Temperature Pulse Rate 93 H 92 H 94 H Respiratory Rate 23 Blood Pressure 136/68 Pulse Oximetry 96 99 83 L 11/28/20 15:54 11/28/20 16:00 11/28/20 16:15 Temperature Pulse Rate 101 H 100 H 95 H Respiratory Rate Blood Pressure 134/73 137/72 134/72 Pulse Oximetry 98 99 99 11/28/20 16:30 11/28/20 17:00 Temperature Pulse Rate 98 H 99 H Respiratory Rate Blood Pressure 133/70 142/69 H Pulse Oximetry 98 98 Oxygen Delivery Method Room Air Narrative Exam Narrative: Const General: cooperative Orientation: alert, awake and oriented x3 HENMT Head: normal to inspection, normocephalic and atraumatic Eyes General: appearance normal, both eyes and all related structures Pupils: PERRL EOM: EOM intact bilaterally Neck Neck: normal visual inspection and full ROM Chest Chest: normal inspection of the chest and normal palpation of entire chest wall Resp Effort & Inspection: normal respiratory effort Auscultation: no rales, no rhonchi and no wheezes Cardio Palpation: normal PMI Rate: regular rate Rhythm: regular rhythm Heart Sounds: S1 normal and S2 normal GI Inspection: normal to inspection Palpation: soft, No guarding and No tender Auscultation: normal bowel sounds Neuro General: patient alert, patient awake, patient oriented x3 and CN's II-XI intact bilaterally Motor: muscle tone normal throughout Sensory Exam: no sensory deficits noted Extrem Right knee: Held in immobilizer. Able to move foot and has preserved sensation in right lower extremity. Psych Mood: congruent mood Affect: normal affect Attitude: cooperative Thought Content: normal Objective Labs Result Diagrams: 11/28/20 11:47 11/28/20 11:47 Labs: Laboratory Results - last 24 hr 11/28/20 11/28/20 11/28/20 11:47 11:47 11:47 WBC 8.7 RBC 3.99 L Hgb 12.2 Hct 36.5 MCV 91.3 MCH 30.5 MCHC 33.3 RDW 14.6 Plt Count 302 Neut % (Auto) 81.3 H Lymph % (Auto) 8.2 L [place] % (Auto) 10.1 Eos % (Auto) 0.0 L Baso % (Auto) 0.4 Neut # (Auto) 7100 H Lymph # (Auto) 700 L [place] # (Auto) 900 Eos # (Auto) 0 Baso # (Auto) 0 PT INR APTT Sodium 139 Potassium 3.8 Chloride 105 Carbon Dioxide 26 BUN 22 H Creatinine 0.77 Estimated GFR > 60.0 BUN/Creatinine Ratio 28.6 H Glucose 157 H Lactate 0.7 Calcium 10.1 Total Bilirubin 0.9 AST 32 ALT 26 Alkaline Phosphatase 155 H Total Creatine Kinase 286 H Total Protein 7.8 Albumin 4.1 Globulin 3.7 Albumin/Globulin Ratio 1.1 Lipase Blood Type Antibody Screen 11/28/20 11/28/20 11/28/20 11:47 11:47 11:47 WBC RBC Hgb Hct MCV MCH MCHC RDW Plt Count Neut % (Auto) Lymph % (Auto) [place] % (Auto) Eos % (Auto) Baso % (Auto) Neut # (Auto) Lymph # (Auto) [place] # (Auto) Eos # (Auto) Baso # (Auto) PT 14.6 H INR 1.3 APTT 30 Sodium Potassium Chloride Carbon Dioxide BUN Creatinine Estimated GFR BUN/Creatinine Ratio Glucose Lactate Calcium Total Bilirubin AST ALT Alkaline Phosphatase Total Creatine Kinase Total Protein Albumin Globulin Albumin/Globulin Ratio Lipase 44 Blood Type O Positive Antibody Screen Negative Assessment & Plan Assessment & Plan narrative: Assessment: 80-year-old female with past medical history of breast cancer status post lumpectomy and chemotherapy, hypertension, diabetes, hyperlipidemia, osteoporosis who presents to the hospital after a mechanical fall at home and is found to have right knee patellar fracture. #. Right patellar fracture Orthopedic surgery is aware of the patient, will follow up on their r ecommendations. Pain control with tylenol and norco. Continue with knee immobilizer pending ortho recs. Will get PT involved. #. Fall at home PT as above. # type 2 diabetes Continue home metformin 1 g daily. #. Hypertension Continue home losartan and hydrochlorothiazide. #. Transaminitis Unclear etiology. Abdomen is non-tender. She denies ETOH use. Could be related to fatty liver. Recommend outpatient liver ultrasound and repeat LFTs. Code status: DNR/DNI DVT prophylaxis: Enoxaparin
--- NOTE | 2020-11-28 18:50 | CM.SWNOTE ---
HAZMAT CDL DRIVER note HAZMAT CDL DRIVER consult requested for patient. Patient is a 80 y/o female who lives alone on [facility]. Per verbal report from ED provider Laura Leon, patient has a knee injury and is not being admitted to hospital at this time. Patient requiring assistance in coordinating a ride home. HAZMAT CDL DRIVER receives call from patient friend Kenia, who states that she has contacted several people that patient knows, and the earliest anyone will be able to catch a ferry to [place] is following day tomorrow. Kenia informs HAZMAT CDL DRIVER that if transportation can be arranged that can get her to the ferry terminal/ticket office on [address], she may be able to worm picker patient tonight. HAZMAT CDL DRIVER enters room and speaks with patient. Patient states she feels as though she can barely walk, and is worried that she does not have help at home. Patient explains she has a walker at home, is usually independent, but currently is wanting additional support due to her knee injury. Patient explains she is considering paying out of pocket for a few days at [facility] to receive more intensive support while recovering, but is not ready to make this call from ED. Patient expresses that she feels uneasy about returning to home and is worried about her safety, warmth, and transportation. Patient is hesitantly agreeable to with plan to get home tonight if safe transportation can be arranged. HAZMAT CDL DRIVER contacts [facility] [employer] who confirm that they can provide assistance with bringing patient on and off ferry with one of their wheelchairs. Due to patient requiring assistance from vehicle to ferry station, patient not a good fit for [employer] taxi. HAZMAT CDL DRIVER attempts ambulance who is unable to provide ambulance service tonight. Due to time of evening, HAZMAT CDL DRIVER staffs with Dr. Young regarding safety concerns and transport arrangements prior to time of ferry departure. Dr. Young to review and likely present for admission. Pl: Patient likely to be presented for admission to . DAIN Elias
[2020-11-28 19:46] LABS: COVID19 -Nasal RAPID Negative (Negative)
--- NOTE | 2020-11-28 20:41 | PC.ADMIT ---
[id number] [place] [address] Admission Note: The patient,Hannah Price,80 y/o, was given written information regarding hospital policies, unit procedures and contact persons. Patient's smoking status: Never smoker. Vital Signs - 8 hr 11/28/20 13:00 11/28/20 13:30 11/28/20 14:00 Temperature Pulse Rate 90 96 H Respiratory Rate 24 28 H Blood Pressure 149/65 H 147/64 H 129/77 Pulse Oximetry 99 99 11/28/20 14:30 11/28/20 14:31 11/28/20 15:00 Temperature Pulse Rate 93 H 93 H 92 H Respiratory Rate 24 23 Blood Pressure 136/68 Pulse Oximetry 96 96 99 11/28/20 15:53 11/28/20 15:54 11/28/20 16:00 Temperature Pulse Rate 94 H 101 H 100 H Respiratory Rate Blood Pressure 134/73 137/72 Pulse Oximetry 83 L 98 99 11/28/20 16:15 11/28/20 16:30 11/28/20 17:00 Temperature Pulse Rate 95 H 98 H 99 H Respiratory Rate Blood Pressure 134/72 133/70 142/69 H Pulse Oximetry 99 98 98 11/28/20 17:30 11/28/20 18:30 11/28/20 19:00 Temperature Pulse Rate 95 H 96 H 84 Respiratory Rate Blood Pressure 132/98 H Pulse Oximetry 96 95 94 11/28/20 19:27 11/28/20 20:00 Temperature 98.2 F Pulse Rate 95 H Respiratory Rate 18 Blood Pressure 119/60 139/71 Pulse Oximetry 97 Patient up from ED via wheelchair. Patient was able to ambulate to bed w/ minimal stand by assistance, gait steady. Patient is A&O, calm and cooperative.
[2020-11-28 22:32] LABS: Appearance Urine UA CLEAR; Glucose Urine UA NEGATIVE (Negative); Ketones Urine UA 1+ (NEGATIVE); Leukocyte Esterase Urine UA NEGATIVE (NEGATIVE); Nitrite Urine UA NEGATIVE (Negative); Occult Blood Urine UA NEGATIVE (Negative); Protein Urine UA 1+ (Negative); Specific Gravity Urine UA 1.025 (1.000-1.035); Urobilinogen Urine UA 0.2 E.U./dL (0.2)
[2020-11-28 22:35] LABS: Bilirubin Urine UA Negative (NEGATIVE); Color Urine UA Dark Yellow
[2020-11-28 22:37] LABS: Squamous Epithelial Cell Urine 0-1 /HPF (0-5/HPF); WBC Urine 0-1/HPF (0-5/HPF)
[2020-11-28 22:38] LABS: Bacteria Urine Few (2-10); Hyaline Casts Urine 0-1/LPF; RBC Urine 0-1/HPF (0-5/HPF)
[2020-11-28 22:39] LABS: Culture Indicated Urine Cult Not Indicated; Mucus Urine 1+ (Negative)
[2020-11-28] MEDS: LACTATED RINGERS 1,000 ML 84 ML IV (23:23)
[2020-11-28] MEDS: SODIUM CHLORIDE 0.9% FLUSH 10 ML IV (23:23)
--- NOTE | 2020-11-29 02:57 | PC.NURSE ---
Addendum entered by Angie Quintero R.N. 11/29/20 06:38: pain is gone but stated she became dizzy about 15 minutes after taking Percocet and is now nauseated and had an emesis. Doc FINK, informed and Carmelita ordered and is being administered by BROOKLYN Lewis. Addendum entered by Angie Quintero R.N. 11/29/20 05:20: States she was able to get some sleep last night. Still states neck pain is 8/10 so medicated with Percocet; declines ice/heat. Original Note: 233: patient is alert and oriented. Breath sounds CTA with RA sat of 96%. HRR w/telemetry reading of SR. Denies nausea. BT present and abdomen is soft. Denies dysuria, frequency or urgency with urination. Able to turn self in bed. Gait not assessed but evening RN reports patient was up to BSC with 1 assist. Does complain of 8/10 neck pain but had Vicodin at 2234 and declines offer of ice/heat and states I just want to sleep. Wearing immobilizer on right LE. 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 Fall risk score is high and bed alarm is activated.
[2020-11-29] MEDS: OXYCODONE/ACETAMINOPHEN 5/325 TABLET 2 TAB PO (05:18)
[2020-11-29 06:00] VITALS: BP 135/70; PULSE 86; RESP 16; TEMP 37.2; O2SAT 93
[2020-11-29] MEDS: ONDANSETRON 4 MG/2 ML INJ IV (06:37)
--- NOTE | 2020-11-29 07:36 | PM.CN ---
History of Present Illness Consult details Date Patient Seen: 11/29/20 Time Patient Seen: 07:37 Chief complaint: Fall Reason for consult: Ground level fall. Right knee pain and swelling Requesting provider: Jihan Young Narrative: 80-year-old female found down in her bathroom on [facility]. Was reportedly down about all night. No signs of rhabdo foot swelling and pain in the right knee unable to ambulate. Admitted to Medicine for comorbidities and physical therapy. On report from patient she states the right knee has actually been swollen for at least 4 days and this predated her fall in the bathroom. She was able to ambulate and states it was swollen but not really sore. Denies any fevers before the fall. States she does have a history of the knee effusion on the other side many years ago when she was of actually ended up with a surgery before they found that she had rheumatic fever. She endorses some back pain after the fall been no other injuries. States that her knee feels better today than it did yesterday. Meds Home Medications and Allergies Home Medications Medication Instructions Recorded Confirmed Type diclofenac potassium 50 mg tablet 50 mg PO DAILY #90 tab 03/24/19 11/28/20 Rx hydrochlorothiazide 25 mg tablet 25 mg PO DAILY #90 tab 03/24/19 11/28/20 Rx losartan 100 mg tablet 100 mg PO DAILY #90 tab 03/24/19 11/28/20 Rx metformin 1,000 mg PO DAILY 10/07/19 11/28/20 History lidocaine 1 patch TOPICAL DAILY PRN #15 ea 11/28/20 11/28/20 Rx Allergies Allergy/AdvReac Type Severity Reaction Status Date / Time diphenhydramine Allergy Intermediate Numbness Verified 11/28/20 11:13 [From Motrin PM] ibuprofen [From Motrin PM] Allergy Intermediate Facial Verified 11/28/20 11:13 Numbness cephalexin Allergy Unknown unknown Verified 11/28/20 11:13 codeine Allergy Unknown didn't Verified 11/28/20 11:13 feel good indomethacin [From Indocin] Allergy Unknown unknown Verified 11/28/20 11:13 naproxen Allergy Unknown agrivated Verified 11/28/20 11:13 arthritis simvastatin Allergy Unknown unknown Verified 11/28/20 11:13 latex AdvReac Intermediate Rash Verified 11/28/20 11:13 Review of Systems Review of Systems Narrative: History of rheumatic fever. Back pain. ROS: Yes All systems reviewed with the patient and are negative except as otherwise documented Exam Vital Signs (past 8 hours): - 11/28/20 23:53 11/29/20 06:00 Temperature 99.0 F 99.0 F Pulse Rate 92 H 86 Respiratory Rate 16 16 Blood Pressure 131/58 L 135/70 Pulse Oximetry 96 93 Oxygen Delivery Method Room Air Oxygen Flow Rate 0 Narrative Exam Narrative: Alert oriented female lying in bed no acute distress answers questions appropriately Respiratory unlabored on room air HEENT exam normocephalic atraumatic CV exam regular rate and rhythm Bilateral upper extremities moving full range of motion no tenderness to palpation Left lower extremity full range of motion well-healed knee scar. No effusion. Sensation intact to light touch. No extensor lag Right lower extremity shows no erythema. There is a large knee effusion. No tenderness to palpation. Calf is soft. Demonstrates 5/5 dorsiflexion plantar flexion. Is able to demonstrate straight leg raise today and no extensor lag. Quadriceps fibers and intact. A demonstrates knee flexion a to 80? easily in bed today. Objective Imaging CT lower extremity, right: My impression: Tricompartmental right knee osteoarthritis. Large suprapatellar effusion. No fracture. Labs Result Diagrams: 11/28/20 11:47 11/28/20 11:47 Labs: Laboratory Results - last 24 hr 11/28/20 11/28/20 11/28/20 11:47 11:47 11:47 WBC 8.7 RBC 3.99 L Hgb 12.2 Hct 36.5 MCV 91.3 MCH 30.5 MCHC 33.3 RDW 14.6 Plt Count 302 Neut % (Auto) 81.3 H Lymph % (Auto) 8.2 L [place] % (Auto) 10.1 Eos % (Auto) 0.0 L Baso % (Auto) 0.4 Neut # (Auto) 7100 H Lymph # (Auto) 700 L [place] # (Auto) 900 Eos # (Auto) 0 Baso # (Auto) 0 PT INR APTT Sodium 139 Potassium 3.8 Chloride 105 Carbon Dioxide 26 BUN 22 H Creatinine 0.77 Estimated GFR > 60.0 BUN/Creatinine Ratio 28.6 H Glucose 157 H Lactate 0.7 Calcium 10.1 Total Bilirubin 0.9 AST 32 ALT 26 Alkaline Phosphatase 155 H Total Creatine Kinase 286 H Total Protein 7.8 Albumin 4.1 Globulin 3.7 Albumin/Globulin Ratio 1.1 Lipase Urine Color Urine Appearance Urine pH Ur Specific [place] Urine Protein Urine Glucose (UA) Urine Ketones Urine Occult Blood Urine Nitrate Urine Bilirubin Urine Urobilinogen Ur Leukocyte Esterase Urine RBC Urine WBC Ur Squamous Epith Cells Urine Bacteria Hyaline Casts Urine Mucus Ur Culture Indicated? SARS-CoV-2 (PCR) Blood Type Antibody Screen 11/28/20 11/28/20 11/28/20 11:47 11:47 11:47 WBC RBC Hgb Hct MCV MCH MCHC RDW Plt Count Neut % (Auto) Lymph % (Auto) [place] % (Auto) Eos % (Auto) Baso % (Auto) Neut # (Auto) Lymph # (Auto) [place] # (Auto) Eos # (Auto) Baso # (Auto) PT 14.6 H INR 1.3 APTT 30 Sodium Potassium Chloride Carbon Dioxide BUN Creatinine Estimated GFR BUN/Creatinine Ratio Glucose Lactate Calcium Total Bilirubin AST ALT Alkaline Phosphatase Total Creatine Kinase Total Protein Albumin Globulin Albumin/Globulin Ratio Lipase 44 Urine Color Urine Appearance Urine pH Ur Specific [place] Urine Protein Urine Glucose (UA) Urine Ketones Urine Occult Blood Urine Nitrate Urine Bilirubin Urine Urobilinogen Ur Leukocyte Esterase Urine RBC Urine WBC Ur Squamous Epith Cells Urine Bacteria Hyaline Casts Urine Mucus Ur Culture Indicated? SARS-CoV-2 (PCR) Blood Type O Positive Antibody Screen Negative 11/28/20 11/28/20 19:15 22:26 WBC RBC Hgb Hct MCV MCH MCHC RDW Plt Count Neut % (Auto) Lymph % (Auto) [place] % (Auto) Eos % (Auto) Baso % (Auto) Neut # (Auto) Lymph # (Auto) [place] # (Auto) Eos # (Auto) Baso # (Auto) PT INR APTT Sodium Potassium Chloride Carbon Dioxide BUN Creatinine Estimated GFR BUN/Creatinine Ratio Glucose Lactate Calcium Total Bilirubin AST ALT Alkaline Phosphatase Total Creatine Kinase Total Protein Albumin Globulin Albumin/Globulin Ratio Lipase Urine Color Dark yellow Urine Appearance Clear Urine pH 5.0 Ur Specific [place] 1.025 Urine Protein 1+ H Urine Glucose (UA) Negative Urine Ketones 1+ H Urine Occult Blood Negative Urine Nitrate Negative Urine Bilirubin Negative Urine Urobilinogen 0.2 Ur Leukocyte Esterase Negative Urine RBC 0-1/hpf Urine WBC 0-1/hpf Ur Squamous Epith Cells 0-1 /hpf Urine Bacteria Few (2-10) H Hyaline Casts 0-1/lpf Urine Mucus 1+ H Ur Culture Indicated? Cult not indicated SARS-CoV-2 (PCR) Negative Blood Type Antibody Screen Assessment & Plan Assessment and plan (1) Knee effusion, right: Status: Acute (2) Arthritis of knee: Status: Acute Assessment & Plan narrative: Patient has right knee arthritis and a knee effusion. She does not have any fractures on plain x-rays or CT scan. Her a leg shows no erythema or warmth no signs of infection. She states her of pain is better than previous. She demonstrates straight leg raise and has intact extensor mechanism. I did offer the patient a therapeutic aspiration of the knee joint. She declines this today. Said she has had this done the past and was painful. Discussed if the effusion does not resolve her pain increases have this can be also done on an outpatient basis. She does not demonstrate any signs of infection. Recommend physical therapy occupational therapy. Discussed knee immobilizer can be used for about a week or so to help with ambulation but should be off for range of motion as her swelling improves to avoid excessive stiffness. She understands and agrees with the plan. I can do physical therapy as an outpatient. Can follow up for an aspiration if her symptoms do not improve. Time Spent With Patient Time with patient: less than 15 minutes
[2020-11-29 08:00] VITALS: BP 131/67; PULSE 83; RESP 18; TEMP 36.3; O2SAT 97
--- NOTE | 2020-11-29 08:17 | PC.NURSE ---
Patient resting comfortably in bed, states she was seen by the orthopedic doctor and things are looking better with her knee. Patient states her only complaint this morning is an upset stomach with nausea, which she attributes to the percocet she took earlier it was too strong for me. Patient would like to wait on breakfast and wait on am pills. Call light within reach, continue with plan of care.
[2020-11-29] MEDS: ENOXAPARIN 40 MG/0.4 ML SYRINGE SUBCUT (08:33)
[2020-11-29] MEDS: SODIUM CHLORIDE 0.9% FLUSH 10 ML IV (08:34)
--- NOTE | 2020-11-29 09:28 | PT.IIE ---
Current Diagnoses Unilateral primary osteoarthritis, unspecified knee (11/28/20) Effusion, right knee (11/28/20) Surgical History (Last Reviewed 11/29/20 @ 07:38 by Magdalena Dueñas MD) H/O hernia repair H/O left knee surgery History of biopsy (02/23/19) History of left hip replacement Medical History (Last Reviewed 11/29/20 @ 07:38 by Magdalena Dueñas MD) Arthritis Diabetes HLD (hyperlipidemia) Hypertension Rheumatic fever Physical Therapy Inpatient Evaluation/Re-Eval M1 PT/OT-IP Prior Functional Status Start: 11/29/20 10:44 Freq: NEEDED Status: Active Protocol: Document 11/29/20 09:28 AB (Rec: 11/29/20 11:00 AB [id number]) Medical Review Prior Functional Status Medical History Reviewed Yes Communication able to make needs known Mobility and Gait pt stated that she is independent with all mobilities and ambulation without AD Social History Household Members none Living Arrangements Mobile home Number of Floors (Floors) One Floor Number of Stairs To Enter/Railing? ramp to enter Home Environment Standard Height Toilet,Walk in Shower Additional Social History Comment pt stated that she has a walker that her friend got her but does not know what type of walker she has M2 PT-IP Current Condition Start: 11/29/20 10:44 Freq: NEEDED Status: Active Protocol: Document 11/29/20 09:28 AB (Rec: 11/29/20 11:00 AB [email or web address]) Physical Therapy Current Condition Current Condition Evaluation Date 11/29/20 Treatment Diagnosis s/p fall R knee effusion; difficulty in walking Onset Date 11/28/20 Precautions Brace R knee immobilizer M3 PT-IP Subjective Start: 11/29/20 10:44 Freq: NEEDED Status: Active Protocol: Document 11/29/20 09:28 AB (Rec: 11/29/20 11:00 AB [email or web address]) Subjective Physical Therapy Visit Type Type Initial Evaluation Visit Start Time 09:28 Visit Stop Time 09:58 Total Visit Minutes 30 Number of SYSTEM INTEGRATION ENGINEER Visits 0 Physical Therapy Visit Comments Patient Comments pt is agreeable to do PT Therapy Pain Assessment Pain Present Pain Present Denied Pain M4 PT-IP Mobility and Gait Start: 11/29/20 10:44 Freq: NEEDED Status: Active Protocol: Document 11/29/20 09:28 AB (Rec: 11/29/20 11:00 [email or web address]) PT-Bed Mobility Assessment Supine to Sit Supine to Sit Maximum Assistance PT-Transfer Assessment Sit to and From Stand Sit to and from Stand Minimal Assistance,Moderate Assistance,1 Person Assistance ,Use of Upper Extremities Equipment Transfer Assistive Device Gait Belt,Front Wheeled Walker Orthotic/Prosthetic Devices or Brace: Yes Transfers Transfer Destination Chair Transfer Technique ambulated using FWW Transfer Ability Level of Assist Minimal Assistance,1 Person Assistance,Use of Upper Extremities Comments Mobility Comments educated pt on donning/doffing of knee immobilizer. instructed to sit up on EOB but pt stated that she cannot do it. stated that she cannnot move her RLE but also stated that she does not have pain on her LE. pt required max A for supine to sit. instructed pt for sit to stand and completed min to mod A and cues. ambulated in room ~ 10 ft using FWW min A and refused further ambulation and requested to sit on chair. agreed to stay up on chair. positioned on chair. call light and table placed within reach. informed pt regarding current level of assistance and safety when she goes home. informed pt that she needs assistance at home and pt stated that she does not have anyone. asked pt regarding what she plans for assistance and stated that she does not have any plans. informed case therapist. Gait Assessment Gait Gait Assistance Required: Minimum Assistance Distance (Feet) 10 Able to Maintain Weight Bearing Status Yes During Gait Assistive Devices Assistive Device Gait Belt,Front Wheeled Walker Orthotic/Prosthetic Devices or Brace: No Gait Deviations General Gait Pattern Antalgic,Decreased Stride Length,Decreased Feet Clearance,Step-to Gait Factors Limiting Gait Function Factors Limiting Gait Function Decreased Activity Tolerance, Decreased Strength,Difficulty Following Directions,Limited Range of Motion,Pain,Poor Balance,Poor Safety Awareness Comments Gait Comments presents with antalgic gait and decrease step length PT-Balance Assessment Sitting Balance and Reactions Static Sitting Balance Ability Good Dynamic Sitting Balance Ability Good Standing Balance and Reactions Static Standing Balance Ability Fair Dynamic Standing Balance Ability Poor Device Used FWW M5 PT-IP Objective Assessments Start: 11/29/20 10:44 Freq: NEEDED Status: Active Protocol: Document 11/29/20 09:28 (Rec: 11/29/20 11:00 [id number]) Orientation Orientation/Cognition Level of Alertness Alert Orientation Name Safety Awareness Decreased Safety Awareness Memory Description Short Term Impaired Gross Range of Motion Lower Extremity ROM Assessment Right Impaired Impairments limited on R knee due to swelling and ms guarding Strength Lower Extremity Strength Assessment Right Impaired Hip 3+/5 Knee 3-/5 Coordination Assessment Gross Coordination Gross Coordination WNL Muscle Tone Muscle Tone WNL Yes M6 PT-IP Treatment Start: 11/29/20 10:44 Freq: NEEDED Status: Active Protocol: Document 11/29/20 09:28 AB (Rec: 11/29/20 11:00 AB [email or web address]) Physical Therapy Treatment Education Education Provided Safety Brace Education Do Kettyffing,Patient M7 PT-IP Assessment and Plan Start: 11/29/20 10:44 Freq: NEEDED Status: Active Protocol: Document 11/29/20 09:28 AB (Rec: 11/29/20 11:00 AB [id number]) PT Summary Assessment and Plan Potential Rehabilitation Potential Fair Status of Condition at Evaluation Stable Summary Impairments Pain,ROM,Strength,Balance, Coordination,Sensation,Tone, Cognition,Bed Mobility, Transfers,Gait,Activity Tolerance Assessment Summary pt requiring max A for bed mobility and min to mod A for transfers and ambulation using FWW. pt lives alone and does not have any assistance at home. pt will require assistance at home due to limited mobility. d/c plan depending on progress but at this time will need SNF rehab. Goals Bed Mobility Goal Standby Assistance Transfer Goal Standby Assistance,Front Wheeled Walker Gait Goal Standby Assistance,Front Wheel Walker Gait Distance 150 Other Goals improve ambulation without AD 100 ft SBA Days to Meet Goals 5 Frequency of Treatment Frequency Of Treatment Once a Day Treatment Plan Physical Therapy Treatment Plan Bed Mobility Training,Transfer Training,Gait Training, Therapeutic Exercise,Balance Retraining,Discharge Planning, Hot or Cold Pack,Neuromuscular Re-ed,Coordination Retraining ,Manual Therapy Recommendations To Nursing Amount of Assist Needed 1 Person Assist Discharge Recommendations PT Discharge Recommendations Home with 28/04 Assist Available,Home Health,SNF Rehab Other Discharge Recommendations SNF vs home w/ 28/04 assist available and HHPT Transportation Needs at Discharge Private Vehicle,Wheelchair/ Cabulance
[2020-11-29 12:00] VITALS: BP 130/72; PULSE 80; RESP 15; TEMP 36.6; O2SAT 98
[2020-11-29] MEDS: METFORMIN HCL 500 MG TABLET 1000 MG PO (13:09)
[2020-11-29] MEDS: hydroCHLOROthiazide 25 MG TABLET PO (13:09)
[2020-11-29] MEDS: LOSARTAN 50 MG TABLET 100 MG PO (13:09)
--- NOTE | 2020-11-29 14:33 | P.DS_ITS ---
History of Present Illness History of Present Illness Date Patient Seen: 11/29/20 Chief complaint: Fall Narrative: This is an 80-year-old female with past medical history of breast cancer status post lumpectomy and chemo, osteoporosis, type 2 diabetes, hypertension, hyperlipidemia lives in [facility] who presented to the hospital with complaint of pain in her right knee. Patient reports having had a mechanical fall at home last night while in the bathroom. She denies head strike or loss consciousness. She says that she crawled to the other room and laid on the blanket. She states that this morning she called a friend who came to help her. She was unable to get up or ambulate and thus EMS was contacted. Patient was airlifted to [facility] where she was found to have patellar fracture on right knee x-ray. There is also evidence of possible orbital wall fracture on head CT however the patient did not have any bruising or pain in the area that was suggested, which lowered the suspicion of any facial trauma. Also, the patient denied any head trauma. Unfortunately, the patient was unable to ambulate and she lives at home alone and that she is being admitted to the hospital for rehab evaluation and further care. Discharge Providers Provider Date of admission: 11/28/20 19:09 Discharge Date: 11/29/20 Primary care physician: Palomo Phoenix MD Consults: 11/28/20 15:09 Consult to [employer] - Demand Inspector Stat Comment: 11/29/20 05:15 Consult to Physical Therapy Evaluate & Treat Comment: Physician Instructions: Evaluate and Treat 11/29/20 07:15 Consult to Physical Therapy Evaluate & Treat Comment: Physician Instructions: Evaluate and Treat 11/29/20 14:09 Consult to Home Health Routine Comment: Fall Reason For Exam: Home health for PT/development and planning engineer provider: Jovon Salinas DO Summary Hospital Course Discharge Diagnosis: Right knee effusion Right knee arthritis Fall at home Type 2 diabetes Hypertension Transaminitis Hospital Course: The patient is an 80-year-old female with past med history of breast cancer status post lobectomy and chemotherapy, hypertension, diabetes, hyperlipidemia, osteoporosis, arthritis who presented to the hospital after a mechanical fall at home and was initially found to have suspected right knee patellar fracture. She was admitted to the hospital while awaiting Orthopedics evaluation. She underwent CT of her right lower extremity which revealed no evidence of fracture of her patella. Orthopedic surgery evaluated the patient and believe that she had an effusion and arthritis of right knee. They do not believe that she had any infectious cause for this effusion. She was evaluated by Physical therapy during admission and will be discharged home with home health and therapy, and with assistance of caregivers at home. Status at Discharge Cognitive/behavioral status at discharge: oriented Overall status at discharge: patient is progressing back to baseline Time Spent with Patient Time spent: Greater than 30 minutes Exam Vital Signs (past 8 hours): - 11/29/20 08:00 11/29/20 12:00 Temperature 97.4 F L 97.8 F Pulse Rate 83 80 Respiratory Rate 18 15 Blood Pressure 131/67 130/72 Pulse Oximetry 97 98 Oxygen Delivery Method Room Air Oxygen Flow Rate 0 Narrative Exam Narrative: Const General: cooperative Orientation: alert, awake and oriented x3 HENMT Head: normal to inspection, normocephalic and atraumatic Eyes General: appearance normal, both eyes and all related structures Pupils: PERRL EOM: EOM intact bilaterally Neck Neck: normal visual inspection and full ROM Chest Chest: normal inspection of the chest and normal palpation of entire chest wall Resp Effort & Inspection: normal respiratory effort Auscultation: no rales, no rhonchi and no wheezes Cardio Palpation: normal PMI Rate: regular rate Rhythm: regular rhythm Heart Sounds: S1 normal and S2 normal GI Inspection: normal to inspection Palpation: soft, No guarding and No tender Auscultation: normal bowel sounds Neuro General: patient alert, patient awake, patient oriented x3 and CN's II-XI intact bilaterally Motor: muscle tone normal throughout Sensory Exam: no sensory deficits noted Right lower extremity: Able to move lower extremities through full AROM. Sensation grossly intact. There is a notable effusion of her right knee. There is no redness or warmth from her right knee. Psych Mood: congruent mood Affect: normal affect Attitude: cooperative Thought Content: normal Objective Labs Result Diagrams: 11/28/20 11:47 11/28/20 11:47 Labs: Laboratory Results - last 24 hr 11/28/20 11/28/20 19:15 22:26 Urine Color Dark yellow Urine Appearance Clear Urine pH 5.0 Ur Specific [place] 1.025 Urine Protein 1+ H Urine Glucose (UA) Negative Urine Ketones 1+ H Urine Occult Blood Negative Urine Nitrate Negative Urine Bilirubin Negative Urine Urobilinogen 0.2 Ur Leukocyte Esterase Negative Urine RBC 0-1/hpf Urine WBC 0-1/hpf Ur Squamous Epith Cells 0-1 /hpf Urine Bacteria Few (2-10) H Hyaline Casts 0-1/lpf Urine Mucus 1+ H Ur Culture Indicated? Cult not indicated SARS-CoV-2 (PCR) Negative [facility] Medical History (Updated 11/29/20 @ 07:41 by Magdalena Dueñas MD) Arthritis Diabetes HLD (hyperlipidemia) Hypertension Rheumatic fever Surgical History H/O hernia repair H/O left knee surgery History of biopsy (02/23/19) History of left hip replacement Family History Mother Heart disease Social History household members: none Smoking Status: Never smoker alcohol intake: never substance use type: does not use Discharge Assessment & Plan Assessment and Plan Assessment: Assessment & Plan narrative: Assessment: 80-year-old female with past medical history of breast cancer status post lumpectomy and chemotherapy, hypertension, diabetes, hyperlipidemia, osteoporosis who presents to the hospital after a mechanical fall at home and is found to have right knee patellar fracture. #. Right knee effusion #. Right knee arthritis #. Fall at home She presented to the hospital after a mechanical fall at home. There was initially suspicion of patellar fracture seen on x-ray. A CT of her right lower extremity was performed to further delineate this fracture. The CT showed no evidence of fracture. She was then evaluated by Orthopedic surgery who diagnosed her with a right knee effusion, without suspicion of infectious etiology. She was initially in a knee immobilizer which she can continue with at home 1 week. She was evaluated by Physical therapy and will be continuing with outpatient physical therapy/home health at discharge. She has caregivers arranged at home. # type 2 diabetes Continue home metformin 1 g daily. #. Hypertension Continue home losartan and hydrochlorothiazide. #. Transaminitis Unclear etiology. Abdomen is non-tender. She denies ETOH use. Could be related to fatty liver. Recommend outpatient liver ultrasound and repeat LFTs. Code status: DNR/DNI Discharge Plan Discharge Plan Patient Disposition: Home Health Service Provider Discharge Comment: Home with home health and caregivers Discharge orders & Medications Prescriptions: New lidocaine 5 % adhesive patch,medicated 1 patch topical DAILY PRN (Reason: pain) Qty: 15 RF: 0 hydrocodone-acetaminophen 5-325 mg Tablet 1 tab PO Q6HR PRN (Reason: pain) Qty: 14 RF: 0 Continued diclofenac potassium 50 mg tablet 50 mg PO DAILY Qty: 90 RF: 0 hydrochlorothiazide 25 mg tablet 25 mg PO DAILY Qty: 90 RF: 0 losartan 100 mg tablet 100 mg PO DAILY Qty: 90 RF: 0 metformin 500 mg tablet 1,000 mg PO DAILY RF: 0 Follow up/Referrals: [facility] [Provider Group] Palomo Phoenix MD [Primary Care Provider] - Visit Report/Discharge Packet Instructions: DI for Low Back Pain, DI for Contusion, DI for Patella Fracture, How To Perform RICE (Rest, Ice, Compress, Elevate), How to Prevent Falls, How to Use a Knee Immobilizer, DI for Thoracic Back Pain Discharge Data Primary Care Provider: Palomo Phoenix Attending Provider: Jovon Salinas
--- NOTE | 2020-11-29 14:48 | CM.DPNOTE ---
Faxed Clinicals for referral to [facility] per Kendra. Fax confirmation received. Called Sondra at [facility] and she confirmed she received referral. Diya Renee, Care Management Asst.
--- NOTE | 2020-11-29 15:17 | CM.DPNOTE ---
DCP/Assessment continued: Reviewed chart. Received referral this AM from provider re: d/c planning. Per notes patient brought in via air lift from [facility] after fall at home. PCP is [facility]. Primary payor is 1)Medicare 2)[employer]. Met with patient this AM re: d/c plan. Patient reports that she would like to return to her residence on [facility]. Patient currently reports no assistance at home. Patient seen by therapy and assistance with ADL's/HH recommended. With patient's permission placed call to her friend/neighbor Kenia Mark re: d/c plan. Kenia reports that she will attempt to find caregivers for patient so that she can come home today. Provider reports that patient is medically stable for d/c. Orders obtained for HH. MEDICAL PATHOLOGIST placed call to [facility] and referral given. Per [facility], they can see patient in the residence on 12-01-20. In addition to the above received call from patient's mechanical applications engineer/Jose Jenkins ph# [phone] he reports that he has spoken with Kenia and that they will coordinate care giving in the residence upon d/c from [facility]. In addition, Kenia reports that flight to return to [place] has been arranged. Provider updated and [facility] [place] [facility]. Kenia to pick patient up when she lands. Caregivers scheduled to assist in the residence and HH arranged through [facility]. P: Home today with [facility] and HH arranged through [facility]. DAIN [facility] Discharge Planning/Care Management CM Discharge Assessment Start: 11/29/20 13:19 Freq: Status: Active Protocol: Document 11/29/20 13:19 KJS (Rec: 11/29/20 13:23 S [id number]) Discharge Planning Assessment Assigned Kier Tender DAIN Sharp Contact Information Kenia Mark (friend and neighbor) ph# [phone] Advance Directives? No History Provided By Patient,Friend,Medical Record Prior Living Arrangements Mobile home Household Members none Independent with ADL's No: Patient fell at home. Is patient alert and oriented? Yes Needs Assistance With Bathing,Meal Prep,Managing Medications,Home Chores / Shopping Caregiver for Another No Barriers to Discharge Yes Comment Patient resides alone and needs currently needs assistance with ADL's. Discharge Plan Home with Home Health Transportation Arrangement Pending Referrals Initiated Home Health Medicare Choice List Provided Yes SNF/HH [facility] # [phone] Has Agency SNF been contacted Yes Whiteboard Updated in Patient Room with Yes name and ext. # of Kier Tender Review Status In Process Next Review Type Continued Stay Review
--- NOTE | 2020-11-29 15:28 | PC.NURSE ---
Discharge order received, coordination for getting patient home and caregivers/help at home arranged by case management. IV dc'd intact and tele dc'd. Discharge instructions and home care handouts reviewed with patient. She states understanding and has no further questions or concerns at this time. Escorted out with all belongings by EXPORT SALES ASSISTANT via wheelchair.
== END 2020-11-29 15:05 | disposition home health service (06) ==
LOC: ED 19:03 → AC 19:10
PROVIDERS: Admitting Provider Hospitalist; Emergency Provider Nurse Practitioner Family; PCP Family Medicine; Referring Provider Emergency Medicine; Visit Provider Hospitalist
DX: S82.001A Unspecified fracture of right patella, initial encounter for closed fracture (principal); M25.461 Effusion, right knee; M54.6 Pain in thoracic spine; M54.2 Cervicalgia; M25.552 Pain in left hip; M25.551 Pain in right hip; W01.0XXA Fall on same level from slipping, tripping and stumbling without subsequent striking against object, initial encounter; Y92.002 Bathroom of unspecified non-institutional (private) residence as the place of occurrence of the external cause; R74.01 Elevation of levels of liver transaminase levels; M17.11 Unilateral primary osteoarthritis, right knee; M81.0 Age-related osteoporosis without current pathological fracture; I10 Essential (primary) hypertension; E78.5 Hyperlipidemia, unspecified; E11.9 Type 2 diabetes mellitus without complications; Z79.84 Long term (current) use of oral hypoglycemic drugs; Z20.822 Contact with and (suspected) exposure to COVID-19
CPT/HCPCS: 36415; 70450; 72125; 72128; 72170; 73562; 73700; 80053; 81001; 82550; 82962; 83605; 83690; 85025; 85610; 85730; 86850; 86900; 86901; 87635; 96361; 96372; 96374; 97161; 99285; C9803; G0378; J1642; J1650; J2405

== ENCOUNTER → 2023-11-10 10:29 | Outpatient (CLI) | payer MEDICARE, OTHER, SELFPAY ==
[2020-11-28 20:07] VITALS: BMI 27.3
--- NOTE | 2023-11-10 | DI.US.S_ITS ---
PROCEDURE: US PELVIC COMPLETE INDICATIONS: POST MENOPAUSAL BLEEDING X 1 YEAR TECHNIQUE: Real-time scanning was performed of the pelvic organs, with image documentation. Additional endovaginal scanning was necessary due to incomplete visualization of the adnexal and endometrial structures by transabdominal scanning. COMPARISON: None. FINDINGS: Uterus: Uterus is anteverted and normal in size at 4.3 x 2.5 x 3.4 cm. The myometrium is homogeneous. The endometrium measures 3.7 mm combined thickness. Ovaries: The ovaries are not seen. There is a midline simple cysts measuring 8.2 x 9.7 x 10.0 centimeters. This appears separate from the urinary bladder. Other: No pathologic free abdominal or pelvic fluid. IMPRESSION: Midline simple cystic lesion measure up to 10 centimeters which appears separate from the urinary bladder. Recommend gynecology consultation as a cystic ovarian neoplasm is in the differential. The uterus is unremarkable. The endometrium is normal in thickness. The ovaries are not seen. We strive to produce accurate, complete, and clear reports of imaging services. To assist us in improving patient care, this report was composed using standard report templates and voice recognition software. Therefore, it may contain abnormal punctuation, insertions and/or omissions. Occasional wrong-word or sound-alike substitutions may occur. Though we review the report and make efforts to correct it, we do recommend that the report be read carefully in proper context to recognize any text inaccuracies. Dictated by: Chris Chicas M.D. on 11/10/2023 at 15:48 Approved by: Chris Chicas M.D. on 11/10/2023 at 15:50
--- NOTE | 2023-11-10 | DI.ECHO.S_ITS ---
[facility]---------+ [facility] +---------+ : : [address] : : : : [id number] : : : : Phone: [phone]---------+ Echocardiogram Report + + :Name: LESLIE FORRESTER Study Date: 11/10/2023 Height: 64 in : :[facility] ReadingLocation: Weight: 150 lb : : Gender: Female BSA: 1.7 m2 : :: 1940 Age: 83 yrs BP: 165/96 mmHg: :Reason For Study: DYSPNEA ON EXERTION : :Ordering Physician: BIANCA, : :FAHAD Vazquez Performed By: Chrissy Rocha : :Referring: FAHAD VALENZUELA : + + Interpretation Summary 1) Normal left ventricular thickness, size, wall motion, and systolic function (EF 60-65%). 2) Normal right ventricular size and function. 3) No significant valvular abnormalities. 4) Compared to the Echo done 05/14/2019, no significant change. Procedure: A two-dimensional transthoracic echocardiogram with color flow and Doppler was performed. The study quality was technically adequate. Comparison is made with the echocardiogram of 05/14/2019. The patient was in sinus rhythm with heart rates between 74-89 bpm during the exam. Left Ventricle: The left ventricle is normal in size and wall thickness. The ejection fraction is estimated to be 60-65%. Left ventricular systolic function appears normal without focal wall motion abnormalities. Right Ventricle: The right ventricle is normal in size and function. Atria: The left atrial size is normal. Right atrial size is normal. There is no Doppler evidence for an interatrial shunt. Mitral Valve: The mitral valve is normal in structure and function. There is no mitral regurgitation noted. Aortic Valve: The aortic valve is trileaflet. The aortic valve opens well. There is no aortic valve stenosis. No aortic regurgitation is present. Tricuspid Valve: The tricuspid valve is normal in structure and function. There is trace tricuspid regurgitation. Pulmonary artery pressures cannot be estimated because of the lack of a measurable TR jet velocity. Pulmonic Valve: The pulmonic valve leaflets are thin and pliable; valve motion is normal. There is no pulmonic valvular regurgitation. Great Vessels: The aortic root is normal size. The dimensions of the ascending aorta are normal. The IVC is of normal diameter and collapses greater than 50% with a sniff. This suggests a low right atrial pressure of 3 mm Hg. Pericardium/ Pleura There is no pericardial effusion. There is no pleural effusion. MMode/2D Measurements & Calculations LVIDd: 4.6 cm LVOT diam: 2.0 cm LVIDs: 2.9 cm Ao root diam: 2.7 cm FS: 36.8 % asc Aorta Diam: 2.9 cm IVSd: 0.83 cm Ao Arch Diam (Prox Trans): 2.0 cm LVPWd: 0.84 cm LV armstrong. diameter/BSA (cm/m^2): 2.6 LV sys. diameter/BSA (cm/m^2): 1.7 LA A2 area: 10.2 cm2 RA long axis: 3.6 cm LA A4 area: 14.6 cm2 RA area: 9.9 cm2 LA length (vol): 4.8 cm RA vol: 23.2 ml LA vol: 26.2 ml RA : 13.4 ml/m2 LA vol index: 15.2 ml/m2 IVC diam: 1.4 cm RVD1 (basal): 2.8 cm TAPSE: 1.6 cm Doppler Measurements & Calculations Ao V2 max: 130.9 cm/sec LVOT Max John: 87.8 cm/sec Ao V2 mean: 101.9 cm/sec LV V1 max P.1 mmHg Ao max P.9 mmHg LV V1 VTI: 17.6 cm Ao mean P.4 mmHg BRAEDEN(I,D): 2.0 cm2 Ao V2 VTI: 26.7 cm BRAEDEN(V,D): 2.1 cm2 sev ratio: 0.66 BRAEDEN indexed to BSA (cm^2/m^2): 1.2 MV E max john: 77.1 cm/sec PA V2 max: 88.0 cm/sec MV A max john: 102.1 cm/sec PA V2 mean: 67.9 cm/sec MV E/A: 0.75 PA mean P.0 mmHg Med Peak E' John: 5.6 cm/sec PA pr(Accel): 37.9 mmHg E/E' med: 13.8 Lat Peak E' John: 6.0 cm/sec E/E' lat: 12.8 E/e' average: 13.3 MV dec time: 0.26 sec SV(LVOT): 54.2 ml Reading Physician:01:58 PM
--- NOTE | 2023-11-10 | DI.MG.S_ITS ---
BILATERAL DIGITAL SCREENING MAMMOGRAM 3D/2D WITH CAD POST LUMPECTOMY: 11/10/2023 CLINICAL: Routine screening. Personal history of right breast cancer. Comparison is made to exams dated: 08/30/2020 mammogram, 01/28/2019 mammogram, and 04/16/2006 mammogram - [facility]. There are scattered areas of fibroglandular density in both breasts (category b / 25%-50% glandular tissue). Current study was also evaluated with a Computer Aided Detection (CAD) system. No significant masses, calcifications, or other findings are seen in either breast. There has been no significant interval change. IMPRESSION: NEGATIVE There is no mammographic evidence of malignancy. A 1 year screening mammogram is recommended. This exam was interpreted at Station ID: [id number]. NOTE: For mammograms, a report in lay terms will be sent to the patient. Approximately 15% of breast malignancies will not be visualized mammographically. In the management of a palpable breast mass, a negative mammogram must not discourage biopsy of a clinically suspicious lesion. Electronically Signed By: Alexandrea william/eva:11/10/2023 12:51:03 letter sent: Normal Exam ACR BI-RADS Category 1: Negative 3341F
== END ==
PROVIDERS: PCP Family Medicine; Referring Provider Family Medicine; Visit Provider Family Medicine
DX: Z12.31 Encounter for screening mammogram for malignant neoplasm of breast (principal); C50.411 Malignant neoplasm of upper-outer quadrant of right female breast; R92.323 Mammographic fibroglandular density, bilateral breasts; R06.09 Other forms of dyspnea; N93.8 Other specified abnormal uterine and vaginal bleeding; N94.89 Other specified conditions associated with female genital organs and menstrual cycle
CPT/HCPCS: 76830; 76856; 77063; 77067; 93306

== ENCOUNTER → 2023-12-03 11:44 | Outpatient (CLI) | payer MEDICARE, OTHER, SELFPAY ==
[2023-11-12 12:15] VITALS: BMI 27.3
[2023-12-03 13:30] LABS: Cancer Antigen 125 9.3 U/mL (0-35)
== END ==
PROVIDERS: PCP Family Medicine; Referring Provider Student in an Organized Health Care Education/Training Program; Visit Provider Student in an Organized Health Care Education/Training Program
DX: R19.00 Intra-abdominal and pelvic swelling, mass and lump, unspecified site (principal)
CPT/HCPCS: 36415; 86304; 86305